=== PATIENT | male | born 1965 | race Caucasian/White ===

== ENCOUNTER 2023-08-13 14:47 | Inpatient (IN) ==
--- NOTE | 2023-08-13 14:57 | ED Triage Note ---
Date of Service August 13, 2023 History of Present Illness This patient was briefly evaluated while in triage. An abbreviated physical exam was performed. This patient is a 58-year-old Male who presents to the ED for evaluation of weakness and numbness all over the body. Symptoms have been worsening for the past few months. The patient reports a prior history of neck surgery in 2011. Physical Exam CONSTITUTIONAL: Healthy and well nourished. HEENT: No scleral icterus or conjunctival injection. NECK: Full active range of motion without discomfort. RESPIRATORY: Clear to auscultation bilaterally with no wheezing, crackles, rhonchi or stridor. CARDIOVASCULAR: Regular rate and rhythm with no murmurs, rubs or gallops. GASTROINTESTINAL: Bowel sounds present in all quadrants. MUSCULOSKELETAL: Full range of motion of all joints without discomfort. INTEGUMENTARY: No obvious skin conditions. HEMATOLOGIC: No ecchymosis or petechiae. PSYCHIATRIC: Positive affect. NEUROLOGIC: No focal neurologic deficits noted. Initial orders for labs and / or imaging were placed and patient was placed in the waiting area until a bed is available. Please see further documentation for the full ED course.
--- NOTE | 2023-08-13 15:42 | XRay Report ---
XR chest 1V portable CLINICAL HISTORY: weakness COMPARISON STUDY: Chest radiograph April 08, 2014. FINDINGS: Anterior cervical spine fusion is incidentally noted. Lung volumes are normal. Lungs are cl ear. There is no pneumothorax or pleural effusion. Cardiac size is normal. Mediastinal contours are n ormal. There is no evidence for pulmonary edema. IMPRESSION: No acute cardiopulmonary findings. ACT 112: Negative or not required by law. Electronically signed by: Khang Grimes M.D. 08/13/2023 3:40 PM
[2023-08-13 16:18] LABS: Basophils # (auto) 0.03 K/uL (0.00-0.20); Basophils % (auto) 0.5 %; Eosinophils # (auto) 0.04 K/uL (0.00-0.50); Eosinophils % (auto) 0.6 %; Hemoglobin 13.7 g/dl (14.0-18.0); Immature Granulocytes # (auto) 0.02 K/uL (0.01-0.20); Immature Granulocytes % (auto) 0.3 %; Lymphocytes # (auto) 1.05 K/uL (1.20-3.40); Lymphocytes % (auto) 16.5 %; Mean Corpuscular Hemoglobin 31.7 pg (25.0-34.0); Mean Corpuscular Hgb Conc 34.3 g/dL (32.0-36.0); Mean Corpuscular Volume 92.6 fL (80.0-100.0); Monocytes # (auto) 0.69 K/uL (0.11-0.59); Monocytes % (auto) 10.8 %; Neutrophils # (auto) 4.55 K/uL (1.40-6.50); Neutrophils % (auto) 71.3 %; Platelet Count 352 K/uL (130-400); RDW Coefficient of Variation 12.2 % (11.5-14.5); RDW Standard Deviation 41.6 fL (36.4-46.3); Red Blood Count 4.32 M/uL (4.70-6.10); White Blood Count 6.38 K/ul (4.8-10.8)
[2023-08-13 16:30] LABS: Albumin Globulin Ratio 1.6 (0.9-2); Albumin Level 4.1 gm/dl (3.4-5.0); BUN Creatinine Ratio 29.2 (10-20); Bilirubin,Total 0.5 mg/dl (0.2-1.0); Calcium 9.7 mg/dl (8.6-10.3); Est GFR (African American) 122.6 ml/min; Est GFR (Non-African American) 105.7 ml/min; Globulin 2.6 gm/dl (2.5-4.0); Magnesium 1.9 mg/dl (1.7-2.4); Potassium 4.1 mmol/L (3.5-5.1); Total Protein 6.7 gm/dl (6.0-8.3)
[2023-08-13 16:36] LABS: Troponin I High Sensitivity 5.2 pg/ml (0-20)
[2023-08-13 16:43] LABS: Prothrombin Time 10.9 Seconds (9.0-12.0)
[2023-08-13 16:45] LABS: Thyroid Stimulating Hormone 1.025 uIu/ml (0.300-4.500)
[2023-08-13 16:53] LABS: Lyme Ab IgG w/WB Rflx Negative (Negative)
[2023-08-13 16:54] LABS: Lyme Ab IgM w/WB Rflx Negative (Negative)
--- NOTE | 2023-08-13 18:09 | Emergency Department Note ---
Impression & Plan Decreased sensation, Anemia, Ambulatory dysfunction ED Provider Note NAME: MICHAELA JEFFRIES AGE: 58 SEX: M : 1965 ARRIVES VIA: Walk-In INFORMANT: Patient, ED PROVIDER(S): Jeremie Johnston MD CHIEF COMPLAINT: Gait imbalance and numbness MEDICAL DECISION MAKING: Patient presents due to concern for gait balance and associated numbness. Patient blood work was obtained. CT of the head was obtained. Patient denies any chest pain. EKG with no signs of ischemia. The patient's blood work shows a normal white count mild anemia hemoglobin of 13.7 with a normal platelet count. Kidney function is unremarkable. Prerenal azotemia noted. BSG 123. Electrolytes otherwise unremarkable negative troponin. B12 and folic acid are not abnormal. Patient's tickborne testing currently negative. I did inform the patient of the findings but given the patient's significant ambulatory dysfunction and inability work to do believe he warrants additional treatment. I did speak with the on-call hospital service Dr. Mccabe and the patient was admitted to the medicine service. Discussion w/ other healthcare providers: None Prior /Outside records reviewed: None Differential diagnosis: Infection, dehydration, metabolic abnormality, hypo/hyperglycemia, electrolyte imbalance, anemia, UTI, pneumonia, thyroid dysfunction among others were considered. Diagnostics, as interpreted by me: ECG: Normal sinus rhythm, rate of 85, normal intervals, normal axis no ST elevations or T WI. Cardiac monitoring: An order was placed for continuous cardiac monitoring. The monitor shows a rate of 85 with sinus rhythm. Patient was placed on pulse oximetry Medical decision rules: None Imaging studies: I informally interpreted the patient's CT head which does not show obvious ICH with formal report to follow. HPI: Patient presents due to concern for numbness and tingling. Patient states that this got progressively worse over the last 3 months or so for the last 2 weeks. Recommended surgery but denies any significant neck pain but does have some occasional discomfort to the neck as well as left shoulder. No chest pain or shortness of breath. Patient has any headache. Patient denies any significant alcohol use. Patient denies any falls or trauma does not take any blood in the medications.. No reported fevers or chills. No known tick bites. Patient does not take anything for symptoms does states that he feels as though he has tingling sensation associated tingling prior to the bilateral upper and lower extremities as well as the trunk. PAST MEDICAL HISTORY: Hypertension, hyperlipidemia PAST SURGICAL HISTORY: See Below SOCIAL HISTORY: Alcohol use socially. Denies drug use. Does chew tobacco HOME MEDICATIONS: See Below ALLERGIES: See Below VITALS: See Below PHYSICAL EXAMINATION: GENERAL: NAD, non-toxic. wearing glasses. EYE EXAM: Normal conjunctiva. PERRL, no anisocoria and EOM's grossly intact w/o pain. OROPHARYNX: Moist mucus membranes, grossly normal dentition. NECK: Supple, no nuchal rigidity, no adenopathy, non-tender. No signs of meningismus. FROM of the neck with good chin to chest and neck extension. No stridor. LUNGS: Clear to auscultation. Normal chest wall mechanics. HEART: NSR, no MRG. ABDOMEN: Abdomen soft, non-tender, no masses, no rebound or guarding. BACK: No CVA TTP. SKIN: No rashes and no bruising. UPPER EXTREMITIES: Upper extremities are grossly normal. LOWER EXTREMITIES: Grossly normal, no edema. NEURO EXAM: A&O x3, cranial nerves II-XII grossly intact, normal speech, moves all 4 extremities. Good patellar reflexes, tingling sensation to the arms legs and torso with normal sensation of the face Past Med/Surg History Social History Smoking Status: Never smoker Tobacco Type: Smokeless Tobacco (Dip or Chew) Second Hand Exposure: No; Do You Dip or Chew Tobacco: Yes; Tobacco Cessation Education Requested by Patient: No Hx Alcohol Use: Yes Alcohol type: beer Hx Substance Use: No Preferred Language: Guyanese Communication Ability: Effective Lead Shipper Required: No Beliefs That Will Affect Care: None Current Living Situation: Family Current Living Situation Comment: lives in house with son, patient and are currently . Other Information That Helps Us Care for You: No Feels Safe at Home: Yes Safety Concerns: Feels Safe At This Time Assistive Devices: Glasses Allergies Allergies Allergy/AdvReac Type Severity Reaction Status Date / Time No Known Allergies Allergy ` Verified 08/13/23 19:10 Home Meds Home Medications Medication Instructions Recorded Confirmed cholecalciferol (vitamin D3) 25 25 mcg PO QAM 08/13/23 08/13/23 mcg (1,000 unit) tablet (Vitamin D3) ibuprofen 200 mg tablet 400 mg PO BID PRN Pain 08/13/23 08/13/23 lisinopril 10 mg tablet 10 mg PO AMHS 08/13/23 08/13/23 omega-3 fatty acids 1,000 mg 1,000 mg PO QAM 08/13/23 08/13/23 capsule rosuvastatin 5 mg tablet 5 mg PO QAM 08/13/23 08/13/23 Results & Data (ED) Vital Signs Vital Signs - 24 hr 08/13/23 14:54 08/13/23 17:45 08/13/23 18:00 Temperature 36.8 C Temperature Source Temporal Artery Scan Pulse Rate 87 79 73 Pulse Rate from SpO2 Sensor 73 Respiratory Rate 18 14 Respiratory Effort / Characteristics Non-Labored Respiratory Depth Normal Blood Pressure 122/72 107/78 Blood Pressure Mean 88 87 Pulse Oximetry 99 98 Oxygen Delivery Method Room Air Sepsis Recent Fever Within 48 Hours No Sepsis New/Unexplained Change in Mental Status No Sepsis Action Taken by Nursing No Action Required Home Medications Current Medication List: was personally reviewed by me Laboratory Data Attestation: I reviewed the patient's lab results. 08/13/23 15:38 08/13/23 15:38 Lab Results 08/13/23 08/13/23 Range/Units 15:30 15:38 WBC 6.38 (4.8-10.8) K/ul RBC 4.32 L (4.70-6.10) M/uL Hgb 13.7 L (14.0-18.0) g/dl Hct 40.0 L (42.0-52.0) % MCV 92.6 (80.0-100.0) fL MCH 31.7 (25.0-34.0) pg MCHC 34.3 (32.0-36.0) g/dL RDW Std Deviation 41.6 (36.4-46.3) fL RDW Coeff of Prakash 12.2 (11.5-14.5) % Plt Count 352 (130-400) K/uL MPV 10.0 (9.4-12.4) fL Immature Gran % (Auto) 0.3 % Neut % (Auto) 71.3 % Lymph % (Auto) 16.5 % Edwards % (Auto) 10.8 % Eos % (Auto) 0.6 % Baso % (Auto) 0.5 % Neut # (Auto) 4.55 (1.40-6.50) K/uL Lymph # (Auto) 1.05 L (1.20-3.40) K/uL Edwards # (Auto) 0.69 H (0.11-0.59) K/uL Eos # (Auto) 0.04 (0.00-0.50) K/uL Baso # (Auto) 0.03 (0.00-0.20) K/uL Immature Gran # (Auto) 0.02 (0.01-0.20) K/uL PT 10.9 (9.0-12.0) Seconds INR 1.0 (0.9-1.1) Sodium 137 (136-145) mmol/L Potassium 4.1 (3.5-5.1) mmol/L Chloride 103 (98-107) mmol/L Carbon Dioxide 26 (21-32) mmol/L Anion Gap 8 (3-11) BUN 19 (6-23) mg/dl Creatinine 0.65 (0.6-1.4) mg/dl Est Cr Clr Drug Dosing 113.0 ml/min Est GFR ( Amer) 122.6 ml/min Est GFR (Non-Af Amer) 105.7 ml/min BUN/Creatinine Ratio 29.2 H (10-20) Glucose 123 H (70-99(Fasting)) mg/dl POC Glucose 126 H (70-99) mg/dl Calcium 9.7 (8.6-10.3) mg/dl Magnesium 1.9 (1.7-2.4) mg/dl Total Bilirubin 0.5 (0.2-1.0) mg/dl AST 17 (13-39) U/L ALT 16 (7-52) U/L Alkaline Phosphatase 59 (34-104) U/L Total Creatine Kinase 88 (30-223) U/L Troponin I High Sens 5.2 (0-20) pg/ml Total Protein 6.7 (6.0-8.3) gm/dl Albumin 4.1 (3.4-5.0) gm/dl Globulin 2.6 (2.5-4.0) gm/dl Albumin/Globulin Ratio 1.6 (0.9-2) Vitamin B12 307 (180-914) pg/ml Folate 11.52 (>5.38) ng/ml TSH 1.025 (0.300-4.500) uIu/ml Anaplasma Smear See Comment Babesia Smear See Comment Lyme Disease IgG Ab Negative (Negative) Lyme Disease IgM Ab Negative (Negative) Administered Medications Sodium Chloride (Nss) 1,000 mls @ 80 mls/hr IV .[id number] GARY Stop: 08/14/23 22:37 Last Admin: 08/13/23 21:46 Dose: 80 mls/hr Documented By: LOGAN Lisinopril (Lisinopril 10 Mg Tab) 10 mg PO AMHS GARY Stop: 09/12/23 21:37 Last Admin: 08/13/23 22:59 Dose: Not Given Documented By: LOGAN Tramadol HCl (Tramadol Hcl 50 Mg Tablet) 50 mg PO Q4H PRN PRN Reason: Pain Stop: 09/13/23 00:20 Last Admin: 08/14/23 00:29 Dose: 50 mg Documented By: LOGAN Discontinued Medications Lorazepam 0.25 mg/ Syringe 0.25 mls @ 2 mls/min IV NOW ONE Stop: 08/14/23 00:16 Last Admin: 08/14/23 00:17 Dose: 2 mls/min Documented By: LOGAN Imaging Data Radiologist's Impression: Chest X-Ray 08/13/23 14:57 XR chest 1V portable CLINICAL HISTORY: weakness COMPARISON STUDY: Chest radiograph April 08, 2014. FINDINGS: Anterior cervical spine fusion is incidentally noted. Lung volumes are normal. Lungs are clear. There is no pneumothorax or pleural effusion. Cardiac size is normal. Mediastinal contours are normal. There is no evidence for pulmonary edema. IMPRESSION: No acute cardiopulmonary findings. ACT 112: Negative or not required by law. Electronically signed by: Khang Grimes M.D. 08/13/2023 3:[address] 08/13/23 18:20 CT OF THE HEAD WITHOUT CONTRAST CLINICAL HISTORY: poor finger to nose/gait imbalance COMPARISON STUDY: No previous studies for comparison. CT DOSE: 547.75 mGy.cm TECHNIQUE: Helical axial images of the head were obtained without IV contrast. Automated exposure control was utilized for the study. A dose lowering technique was utilized adhering to the principles of ALARA. FINDINGS: No acute intracranial hemorrhage, midline shift or mass effect is present. The ventricular system is unremarkable. The basal cisterns are patent. No extra-axial collections are present. There are no findings to suggest acute dural sinus thrombosis or acute territorial infarct. No significant calvarial abnormalities are present. Visualized portions of the sinuses and mastoid air cells are clear. IMPRESSION: No acute intracranial findings. ACT 112: Negative or not required by law. Electronically signed by: Khang Grimes M.D. 08/13/2023 7:01 PM Discharge Plan Visit Data Chief Complaint: Neuro Symptoms/Deficit Stated Complaint: NUMBNESS IN HANDS/WHOLE BODY ED Provider: Jeremie Johnston Discharge Problem: Decreased sensation, Anemia, Ambulatory dysfunction Patient Disposition: Admitted As Inpatient Discharge Instructions Interventions: ED Discharge Assessment Last Done: 08/13/23 21:24 Discharge Problem: Anemia Qualifiers: Anemia type: unspecified type Qualified Code(s): D64.9 - Anemia, unspecified
--- NOTE | 2023-08-13 19:02 | CT Scan Report ---
CT OF THE HEAD WITHOUT CONTRAST CLINICAL HISTORY: poor finger to nose/gait imbalance COMPARISON STUDY: No previous studies for comparison. CT DOSE: 547.75 mGy.cm TECHNIQUE: Helical axial images of the head were obtained without IV contrast. Automated exposure con trol was utilized for the study. A dose lowering technique was utilized adhering to the principles o f ALARA. FINDINGS: No acute intracranial hemorrhage, midline shift or mass effect is present. The ventricular system is unremarkable. The basal cisterns are patent. No extra-axial collections are present. There are no findings to suggest acute dural sinus thrombosis or acute territorial infarct. No significant calvarial abnormalities are present. Visualized portions of the sinuses and mastoid air cells are elia ar. IMPRESSION: No acute intracranial findings. ACT 112: Negative or not required by law. Electronically signed by: Khang Grimes M.D. 08/13/2023 7:01 PM
--- NOTE | 2023-08-13 20:41 | History & Physical Report ---
Date of Service August 13, 2023 Assessment & Plan (1) Weakness of extremity: Plan: 58-year-old male with past medical significant for dyslipidemia, hypertension, bilateral carpal tunnel syndrome, comes with ongoing bilateral extremities weakness and numbness for several months progressively getting worse in the last 2 to 3 weeks. Bilateral extremity weakness and numbness Possible cervical radiculopathy We will get MRI cervical spine Spine surgery consult Hypertension Continue home med lisinopril We will monitor Hyperlipidemia On statin DVT prophylaxis SCDs Disposition MedSurg Full code History of Present Illness Chief Complaint: Numbness and weakness of bilateral extremities Primary Care Provider: NO PCP 58-year-old male with past medical history significant for dyslipidemia, hypertension, bilateral carpal tunnel syndrome, comes with ongoing bilateral extremities weakness and numbness for several months progressively getting worse in the last 2 to 3 weeks. He states several years ago looks like in 2006 he had cervical spine surgery. He thinks again these problems are from his neck. He has some painful neck movements. Denies any headache. No dizziness. No blurred visions. No earache or runny nose or sore throat. No cough. No difficulty swallowing. No chest pain or shortness of breath. No nausea or vomiting. No abdominal pain. Normal bowel and bladder movements. Hemodynamics are stable. Past medical history. As mentioned above Past surgical history. Left total knee arthroplasty. Bilateral carpal tunnel surgery. Colonoscopy. Cervical spine surgery. Left inguinal hernia repair. Knee surgery 1983. Social history. Quit smoking in 2000. Smoked half pack a day for 15 years. Alcohol occasional. No drug use. Family history. Father had lymphoma. Heart disorder. Hypertension. Paternal grandfather had heart attack. Sister has hypertension. Mother had stroke at age of 37 from ruptured brain aneurysm. Allergies Allergy/AdvReac Type Severity Reaction Status Date / Time No Known Allergies Allergy ` Verified 08/13/23 19:10 Home Medications Medication Instructions Recorded Confirmed Type cholecalciferol (vitamin D3) 25 25 mcg PO QAM 08/13/23 08/13/23 History mcg (1,000 unit) tablet (Vitamin D3) ibuprofen 200 mg tablet 400 mg PO BID PRN Pain 08/13/23 08/13/23 History lisinopril 10 mg tablet 10 mg PO AMHS 08/13/23 08/13/23 History omega-3 fatty acids 1,000 mg 1,000 mg PO QAM 08/13/23 08/13/23 History capsule rosuvastatin 5 mg tablet 5 mg PO QAM 08/13/23 08/13/23 History Past Med/Surg History Social History Smoking Status: Never smoker Tobacco Type: Smokeless Tobacco (Dip or Chew) Second Hand Exposure: No; Do You Dip or Chew Tobacco: Yes; Tobacco Cessation Education Requested by Patient: No Hx Alcohol Use: Yes Alcohol type: beer Hx Substance Use: No Preferred Language: Luxembourgish Communication Ability: Effective Band Booker Required: No Beliefs That Will Affect Care: None Current Living Situation: Family Current Living Situation Comment: lives in house with son, patient and are currently . Other Information That Helps Us Care for You: No Feels Safe at Home: Yes Safety Concerns: Feels Safe At This Time Assistive Devices: Glasses Review of Systems Review of Systems: All systems reviewed & are unremarkable except as noted in HPI & below Physical Exam Physical Exam: General- Not in distress Head- atraumatic Eyes- PERRL. ENT- oropharynx clear Neck- supple, no JVD. Lungs- clear to auscultation no wheezing or crackles. Heart- regular rate and rhythm; no murmur, no gallop. Abdomen- normal bowel sounds, soft, nontender, no distension. Extremities- no pretibial edema, no erythema seen. Neuro- alert, oriented x 3; PERRL,no facial palsy; no dysarthria; motor 4/5 bilaterally; decreased sensations neck down. Skin- warm & dry Results & Data Results & Data Vital Signs (Past 12 Hours) Vital Signs Temp Pulse Resp BP Pulse Ox O2 Del Method 08/13/23 18:00 73 14 107/78 98 08/13/23 17:45 79 08/13/23 14:54 36.8 C 87 18 122/72 99 Room Air Diagnostic Findings Laboratory Results WBC 6.38 K/ul (4.8-10.8) 08/13/23 15:38 RBC 4.32 M/uL (4.70-6.10) L 08/13/23 15:38 Hgb 13.7 g/dl (14.0-18.0) L 08/13/23 15:38 Hct 40.0 % (42.0-52.0) L 08/13/23 15:38 MCV 92.6 fL (80.0-100.0) 08/13/23 15:38 MCH 31.7 pg (25.0-34.0) 08/13/23 15:38 MCHC 34.3 g/dL (32.0-36.0) 08/13/23 15:38 RDW Std Deviation 41.6 fL (36.4-46.3) 08/13/23 15:38 RDW Coeff of Prakash 12.2 % (11.5-14.5) 08/13/23 15:38 Plt Count 352 K/uL (130-400) 08/13/23 15:38 MPV 10.0 fL (9.4-12.4) 08/13/23 15:38 Immature Gran % (Auto) 0.3 % 08/13/23 15:38 Neut % (Auto) 71.3 % 08/13/23 15:38 Lymph % (Auto) 16.5 % 08/13/23 15:38 Parmer % (Auto) 10.8 % 08/13/23 15:38 Eos % (Auto) 0.6 % 08/13/23 15:38 Baso % (Auto) 0.5 % 08/13/23 15:38 Neut # (Auto) 4.55 K/uL (1.40-6.50) 08/13/23 15:38 Lymph # (Auto) 1.05 K/uL (1.20-3.40) L 08/13/23 15:38 Parmer # (Auto) 0.69 K/uL (0.11-0.59) H 08/13/23 15:38 Eos # (Auto) 0.04 K/uL (0.00-0.50) 08/13/23 15:38 Baso # (Auto) 0.03 K/uL (0.00-0.20) 08/13/23 15:38 Immature Gran # (Auto) 0.02 K/uL (0.01-0.20) 08/13/23 15:38 PT 10.9 Seconds (9.0-12.0) 08/13/23 15:38 INR 1.0 (0.9-1.1) 08/13/23 15:38 Sodium 137 mmol/L (136-145) 08/13/23 15:38 Potassium 4.1 mmol/L (3.5-5.1) 08/13/23 15:38 Chloride 103 mmol/L (98-107) 08/13/23 15:38 Carbon Dioxide 26 mmol/L (21-32) 08/13/23 15:38 Anion Gap 8 (3-11) 08/13/23 15:38 BUN 19 mg/dl (6-23) 08/13/23 15:38 Creatinine 0.65 mg/dl (0.6-1.4) 08/13/23 15:38 Est Cr Clr Drug Dosing 113.0 ml/min 08/13/23 15:38 Est GFR ( Amer) 122.6 ml/min 08/13/23 15:38 Est GFR (Non-Af Amer) 105.7 ml/min 08/13/23 15:38 BUN/Creatinine Ratio 29.2 (10-20) H 08/13/23 15:38 Glucose 123 mg/dl (70-99(Fasting)) H 08/13/23 15:38 POC Glucose 126 mg/dl (70-99) H 08/13/23 15:30 Calcium 9.7 mg/dl (8.6-10.3) 08/13/23 15:38 Magnesium 1.9 mg/dl (1.7-2.4) 08/13/23 15:38 Total Bilirubin 0.5 mg/dl (0.2-1.0) 08/13/23 15:38 AST 17 U/L (13-39) 08/13/23 15:38 ALT 16 U/L (7-52) 08/13/23 15:38 Alkaline Phosphatase 59 U/L (34-104) 08/13/23 15:38 Total Creatine Kinase 88 U/L (30-223) 08/13/23 15:38 Troponin I High Sens 5.2 pg/ml (0-20) 08/13/23 15:38 Total Protein 6.7 gm/dl (6.0-8.3) 08/13/23 15:38 Albumin 4.1 gm/dl (3.4-5.0) 08/13/23 15:38 Globulin 2.6 gm/dl (2.5-4.0) 08/13/23 15:38 Albumin/Globulin Ratio 1.6 (0.9-2) 08/13/23 15:38 TSH 1.025 uIu/ml (0.300-4.500) 08/13/23 15:38 Anaplasma Smear See Comment 08/13/23 15:38 Babesia Smear See Comment 08/13/23 15:38 Lyme Disease IgG Ab Negative (Negative) 08/13/23 15:38 Lyme Disease IgM Ab Negative (Negative) 08/13/23 15:38 Impressions Chest X-Ray 08/13/23 14:57 XR chest 1V portable CLINICAL HISTORY: weakness COMPARISON STUDY: Chest radiograph April 08, 2014. FINDINGS: Anterior cervical spine fusion is incidentally noted. Lung volumes are normal. Lungs are clear. There is no pneumothorax or pleural effusion. Cardiac size is normal. Mediastinal contours are normal. There is no evidence for pulmonary edema. IMPRESSION: No acute cardiopulmonary findings. ACT 112: Negative or not required by law. Electronically signed by: Khang Grimes M.D. 08/13/2023 3:[address] 08/13/23 18:20 CT OF THE HEAD WITHOUT CONTRAST CLINICAL HISTORY: poor finger to nose/gait imbalance COMPARISON STUDY: No previous studies for comparison. CT DOSE: 547.75 mGy.cm TECHNIQUE: Helical axial images of the head were obtained without IV contrast. Automated exposure control was utilized for the study. A dose lowering technique was utilized adhering to the principles of ALARA. FINDINGS: No acute intracranial hemorrhage, midline shift or mass effect is present. The ventricular system is unremarkable. The basal cisterns are patent. No extra-axial collections are present. There are no findings to suggest acute dural sinus thrombosis or acute territorial infarct. No significant calvarial abnormalities are present. Visualized portions of the sinuses and mastoid air cells are clear. IMPRESSION: No acute intracranial findings. ACT 112: Negative or not required by law. Electronically signed by: Khang Grimes M.D. 08/13/2023 7:01 PM Code Status & VTE Plan VTE Prophylaxis Plan VTE Prophylaxis will be ordered: Yes
[2023-08-13 21:16] LABS: Folate (Folic Acid),Ser orPlas 11.52 ng/ml (>5.38)
[2023-08-13] MEDS ORDERED: ACETAMINOPHEN 325 MG TAB PO PRN (21:38)
[2023-08-13] MEDS ORDERED: POLYETHYLENE (MIRALAX) 17 GM PACK PO PRN (21:38)
[2023-08-13] MEDS: SODIUM CHLORIDE 0.9% 1,000 ML IV SCH (21:46)
[2023-08-13] MEDS: lisinopril 10 MG TAB PO SCH (22:59)
[2023-08-14] MEDS ORDERED: LORazepam 0.25 MG in SYRINGE 0.125 ML IV ONE (00:15)
[2023-08-14] MEDS: traMADol HCL 50 MG TABLET PO PRN ×2 (00:29→11:29)
[2023-08-14 00:58] LABS: Appearance Urine Clear (Clear); Bilirubin Urine Negative (Negative); Blood Urine Negative (Negative); Color Urine Yellow; Glucose Urine UA Negative (Negative); Ketones Urine Negative (Negative); Leukocyte Esterase Urine Negative (Negative); Nitrite Urine Negative (Negative); Protein Urine Negative (Negative); Specific Gravity Urine 1.014 (1.000-1.030); Urobilinogen Urine Negative (Negative)
[2023-08-14] MEDS ORDERED: GADOBUTROL 65ML VIAL IV ONE (01:16)
--- NOTE | 2023-08-14 03:17 | Magnetic Resonance Report ---
Exam(s): MRI C SPINE IV Amt: 7cc gadavist EXAM: MR Cervical Spine With Intravenous Contrast CLINICAL HISTORY: Reason for exam: b/l extremities weakness and numbness. TECHNIQUE: Magnetic resonance images of the cervical spine with intravenous contrast in multiple planes. CONTRAST: Patient received 7cc gadavist of IV contrast COMPARISON: Comparison made to prior MRI of the cervical spine from February 01, 2012.. FINDINGS: Vertebrae: There are 7 cervical type vertebral bodies with a mild generalized curve to the right and straighten the normal cervical lordosis. There is a mild grade 1 anterolisthesis of C2 on C3 measuring 2 mm. Otherwise, there is normal vertebral body height and alignment. Patient is status post corpectomy at C6 and C7 with anterior fusion of C3- C7 with expected postsurgical changes. No acute fracture. Spinal cord: There is impingement of the cord at C2-3 with increased cord signal concern for cord edema. The craniocervical junction is normal without evidence of Chiari malformation. No abnormal enhancement. Soft tissues: The cervical flow voids are intact. DISCS/SPINAL CANAL/NEURAL FORAMINA: C2-C3: Mild disc degeneration with annular disc bulge flatten the ventral cord with increased cord signal concerning for cord edema and causing a critical spinal canal stenosis with AP diameter measured 5.5 mm. Advanced facet joint arthropathy with moderate right and advanced left synovitis with bone marrow edema and inflammation of the surrounding soft tissues. C3-C4: There is fusion across the segments without evidence of residual stenosis or impingement. There is minimal to mild facet arthropathy with mild synovitis. C4-C5: There is fusion across the segments without evidence of residual stenosis or impingement. There is minimal to mild facet arthropathy with mild synovitis. C5-C6: There is fusion across the segments without evidence of residual stenosis or impingement. There is minimal to mild facet arthropathy with mild synovitis. C6-C7: There is fusion across the segments without evidence of residual stenosis or impingement. There is minimal to mild facet arthropathy with mild synovitis. C7-T1: Moderate disc degeneration with annular disc bulge asymmetric to the left flattening the ventral thecal sac with uncovertebral joint arthropathy and disc extend to the neural foramina causing moderately severe bilateral stenoses with impingement of the C8 nerve roots.. There is advanced facet arthropathy with moderate synovitis. IMPRESSION: 1. Moderate disc degeneration at C7-T1 and mild disc degeneration at C2- 3 with annular disc bulging flatten the ventral thecal sac and flattening the ventral cord at C2-3 with cord edema. Recommend neurosurgical consult for decompression. 2. There is a critical spinal canal stenosis at C2-3. 3. There is moderately severe bilateral C7-T1 neural foraminal stenosis with impingement of the bilateral C8 nerve roots. 4. There is minimal to advanced facet joint arthropathy with mild to advanced synovitis, most significant at C2-3. 5. No evidence of fracture, infection or tumor. Electronically signed by: Maria Dolores Narvaez MD 08/14/23 03:16 AM
[2023-08-14 06:40] LABS: Basophils # (auto) 0.03 K/uL (0.00-0.20); Basophils % (auto) 0.5 %; Eosinophils # (auto) 0.14 K/uL (0.00-0.50); Eosinophils % (auto) 2.3 %; Hemoglobin 13.6 g/dl (14.0-18.0); Immature Granulocytes # (auto) 0.02 K/uL (0.01-0.20); Immature Granulocytes % (auto) 0.3 %; Lymphocytes # (auto) 1.67 K/uL (1.20-3.40); Lymphocytes % (auto) 27.8 %; Mean Corpuscular Hemoglobin 31.3 pg (25.0-34.0); Mean Corpuscular Hgb Conc 34.9 g/dL (32.0-36.0); Mean Corpuscular Volume 89.7 fL (80.0-100.0); Mean Platelet Volume 9.9 fL (9.4-12.4); Monocytes # (auto) 0.73 K/uL (0.11-0.59); Monocytes % (auto) 12.2 %; Neutrophils # (auto) 3.41 K/uL (1.40-6.50); Neutrophils % (auto) 56.9 %; Platelet Count 309 K/uL (130-400); RDW Coefficient of Variation 12.1 % (11.5-14.5); RDW Standard Deviation 39.5 fL (36.4-46.3); Red Blood Count 4.35 M/uL (4.70-6.10)
[2023-08-14 06:56] LABS: BUN Creatinine Ratio 27.6 (10-20); Calcium 9.6 mg/dl (8.6-10.3); Creatinine Clr Calc Pharmacy 126.6 ml/min; Est GFR (African American) 128.4 ml/min; Est GFR (Non-African American) 110.8 ml/min; Magnesium 1.8 mg/dl (1.7-2.4)
--- NOTE | 2023-08-14 08:22 | Electrocardiogram Report ---
Test Reason : Blood Pressure : / mmHG Vent. Rate : 085 BPM Atrial Rate : 085 BPM P-R Int : 138 ms QRS Dur : 086 ms QT Int : 372 ms P-R-T Axes : 074 063 074 degrees QTc Int : 442 ms Normal sinus rhythm Normal ECG When compared with ECG of 08-APR-2014 08:58, No significant change was found Confirmed by Catrachito Wolf ([id number]) on 08/14/2023 8:22:16 AM Referred By: REFERRED SELF Confirmed By:Catrachito Wolf
[2023-08-14] MEDS: lisinopril 10 MG TAB PO SCH (08:28)
--- NOTE | 2023-08-14 08:58 | Consultation ---
Date of Consultation August 14, 2023 Assessment & Plan (1) Cervical cord myelomalacia: Michaela has C2-3 severe stenosis and myelomalacia on MRI. He also has severe neuroforaminal stenosis bilaterally at C7-T1. Case has been discussed with Dr. Kahn. Unfortunately he does not perform necessary procedure to address his cervical myelomalacia at the C2-3 level. Recommendation is transfer to a tertiary care center today so that he may undergo necessary procedure. This has been discussed with the patient. He understands. History of Present Illness Attending Physician: Mukul Brennan MD History of Present Illness This is a pleasant 58-year-old gentleman well-known to us. He had undergone a multilevel cervical fusion by Dr. Kahn in 2011. He did well postoperatively. More recently he states for the past 2 to 3 weeks he has had numbness and weakness affecting bilateral upper and lower extremities. He states he was trying to work and not leave therefore delayed any treatment. Presented to the emergency room yesterday. He has noted balance changes. No falls. Imaging independently. 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 He noticed he has been dropping several objects over the past couple weeks. He has been taking Advil for pain control at home. Denies bowel or bladder dysfunction. He notes he has numbness from the chest down. Any type of cervical movement reproduces neck pain and left shoulder pain Allergies Allergy/AdvReac Type Severity Reaction Status Date / Time No Known Allergies Allergy ` Verified 08/13/23 19:10 Home Medications Medication Instructions Recorded Confirmed Type cholecalciferol (vitamin D3) 25 25 mcg PO QAM 08/13/23 08/13/23 History mcg (1,000 unit) tablet (Vitamin D3) ibuprofen 200 mg tablet 400 mg PO BID PRN Pain 08/13/23 08/13/23 History lisinopril 10 mg tablet 10 mg PO AMHS 08/13/23 08/13/23 History omega-3 fatty acids 1,000 mg 1,000 mg PO QAM 08/13/23 08/13/23 History capsule rosuvastatin 5 mg tablet 5 mg PO QAM 08/13/23 08/13/23 History Patient History Social History Smoking Status: Never smoker Tobacco Type: Smokeless Tobacco (Dip or Chew) Second Hand Exposure: No; Do You Dip or Chew Tobacco: Yes; Tobacco Cessation Education Requested by Patient: No Hx Alcohol Use: Yes Alcohol type: beer Hx Substance Use: No Preferred Language: Algerian Communication Ability: Effective Contract Administration Coordinator Required: No Beliefs That Will Affect Care: None Current Living Situation: Family Current Living Situation Comment: lives in house with son, patient and are currently . Other Information That Helps Us Care for You: No Feels Safe at Home: Yes Safety Concerns: Feels Safe At This Time Assistive Devices: None Review of Systems Review of Systems: All systems reviewed & are unremarkable except as noted in HPI & below Physical Exam Physical Exam: He is laying in bed in no acute distress Anterior cervical incision is well-healed I am unable to elicit any upper motor neuron signs but he is quite tense during our exam No evidence of an clonus again very tense and difficult to assess though 5/5 finger intrinsics, wrist flexors, wr ist extensors, biceps, triceps, deltoid Positive for meets with cervical extension Results & Data Vital Signs (Past 12 Hours) Vital Signs Temp Pulse Resp BP Pulse Ox O2 Del Method 08/14/23 07:21 36.5 C 75 16 143/88 H 97 Room Air 08/13/23 21:30 36.6 C 74 16 133/83 98 Room Air Diagnostic Findings [place], [place] [phone] Magnetic Resonance Report Patient: MICHAELA JEFFRIES Admit Date: 08/13/23 MR#: [id number] Address1: [address] [place] [address] Acct ID:[id number] Address2: [place] [address] Date: 1965 [facility] Zip: [place] [address] Age: 58 Location: 3W Sex: M Room/Bed: [facility] Att Phy: Robbin Bates MD Diagnosis: NUMBNESS AND WEAKNESS IN EXTREMITIES Leela Phy: PCP,NO Service Date: 08/14/23 Fam Phy: Interpreting Phy: Maria Dolores Narvaez MDAdmit Phy: Pavel Mccabe MD Ordering Phy: Pavel Mccabe MD cc: ~ Exam(s): MRI C SPINE IV Amt: 7cc gadavist EXAM: MR Cervical Spine With Intravenous Contrast CLINICAL HISTORY: Reason for exam: b/l extremities weakness and numbness. TECHNIQUE: Magnetic resonance images of the cervical spine with intravenous contrast in multiple planes. CONTRAST: Patient received 7cc gadavist of IV contrast COMPARISON: Comparison made to prior MRI of the cervical spine from February 01, 2012.. FINDINGS: Vertebrae: There are 7 cervical type vertebral bodies with a mild generalized curve to the right and straighten the normal cervical lordosis. There is a mild grade 1 anterolisthesis of C2 on C3 measuring 2 mm. Otherwise, there is normal vertebral body height and alignment. Patient is status post corpectomy at C6 and C7 with anterior fusion of C3- C7 with expected postsurgical changes. No acute fracture. Spinal cord: There is impingement of the cord at C2-3 with increased cord signal concern for cord edema. The craniocervical junction is normal without evidence of Chiari malformation. No abnormal enhancement. Soft tissues: The cervical flow voids are intact. DISCS/SPINAL CANAL/NEURAL FORAMINA: C2-C3: Mild disc degeneration with annular disc bulge flatten the ventral cord with increased cord signal concerning for cord edema and causing a critical spinal canal stenosis with AP diameter measured 5.5 mm. Advanced facet joint arthropathy with moderate right and advanced left synovitis with bone marrow edema and inflammation of the surrounding soft tissues. C3-C4: There is fusion across the segments without evidence of residual stenosis or impingement. There is minimal to mild facet arthropathy with mild synovitis. C4-C5: There is fusion across the segments without evidence of residual stenosis or impingement. There is minimal to mild facet arthropathy with mild synovitis. C5-C6: There is fusion across the segments without evidence of residual stenosis or impingement. There is minimal to mild facet arthropathy with mild synovitis. C6-C7: There is fusion across the segments without evidence of residual stenosis or impingement. There is minimal to mild facet arthropathy with mild synovitis. C7-T1: Moderate disc degeneration with annular disc bulge asymmetric to the left flattening the ventral thecal sac with uncovertebral joint arthropathy and disc extend to the neural foramina causing moderately severe bilateral stenoses with impingement of the C8 nerve roots.. There is advanced facet arthropathy with moderate synovitis. IMPRESSION: 1. Moderate disc degeneration at C7-T1 and mild disc degeneration at C2- 3 with annular disc bulging flatten the ventral thecal sac and flattening the ventral cord at C2-3 with cord edema. Recommend neurosurgical consult for decompression. 2. There is a critical spinal canal stenosis at C2-3. 3. There is moderately severe bilateral C7-T1 neural foraminal stenosis with impingement of the bilateral C8 nerve roots. 4. There is minimal to advanced facet joint arthropathy with mild to advanced synovitis, most significant at C2-3. 5. No evidence of fracture, infection or tumor. Electronically signed by: Maria Dolores Narvaez MD 08/14/23 03:16 AM Dictated: 08/14/236 Transcribed: 08/14/236
[2023-08-14] MEDS ORDERED: INFLUENZA VIRUS QUADRIVALENT VACCINE (IIV4) 0.5 ML SYR IM ONE (09:00)
[2023-08-14] MEDS ORDERED: CHOLECALCIFEROL 1,000 UNITS 25 MCG TAB PO SCH (09:00)
[2023-08-14] MEDS ORDERED: ROSUVASTATIN CALCIUM 5 MG TAB PO SCH (09:00)
[2023-08-14] MEDS: SODIUM CHLORIDE 0.9% 1,000 ML IV SCH (10:51)
[2023-08-14] MEDS ORDERED: DEXAMETHASONE SOD INJ 4 MG/ML VIAL IV SCH (11:00)
[2023-08-14] MEDS ORDERED: dexAMETHasone 20 MG in DEXTROSE 5% 25 ML IV SCH (11:15)
--- NOTE | 2023-08-14 12:28 | Hospitalist Progress Note ---
Date of Service August 14, 2023 Assessment & Plan (1) Weakness of extremity: Plan: 58-year-old male with past medical significant for dyslipidemia, hypertension, bilateral carpal tunnel syndrome, comes with ongoing bilateral extremities weakness and numbness for several months progressively getting worse in the last 2 to 3 weeks. Cervical cord myelomalacia--POA Presented with Bilateral extremity weakness and numbness --Cervical MRI:Moderate disc degeneration at C7-T1 and mild disc degeneration at C2-3 with annular disc bulging flatten the ventral thecal sac and flattening the ventral cord at C2-3 with cord edema. Recommend neurosurgical consult for decompression. There is a critical spinal canal stenosis at C2-3. There is moderately severe bilateral C7-T1 neural foraminal stenosis with impingement of the bilateral C8 nerve roots. There is minimal to advanced facet joint arthropathy with mild to advanced synovitis, most significant at C2-3. No evidence of fracture, infection or tumor. --Head CT:No acute intracranial findings. -- Appreciate orthopedics input Given need for neurosurgery/possible need for extensive spine surgery orthopedics recommended transfer to tertiary care facility Patient/family understands and agrees with transfer Patient was accepted at [facility] for further evaluation Hypertension Continue lisinopril monitor Hyperlipidemia On statin DVT prophylaxis SCDs CODE STATUS Full Code Disposition [facility] Admission and Anticipated Discharge Date Admission Date: August 13, 2023 Subjective Patient is seen and examined at bedside States having neck pain associated with upper extremity weakness Denies any chest pain, dyspnea, dizziness Plan to be transferred to [facility] as recommended by orthopedics Review of Systems Review of Systems: All systems reviewed & are unremarkable except as noted in Subjective Physical Exam Physical Exam: Physical Exam: Vitals signs as noted above General Appearance:Moderately built and nourished, no apparent distress Head: normocephalic, Atraumatic Eyes: normal inspection, EOMI Neck: supple, Trachea midline Respiratory/Chest: Normal breath sounds, CTA, No accessory muscle use Cardiovascular: S1, S2, No murmur Abdomen/GI:Soft, Non tender, Bowel sounds present Extremities/Musculoskeletal:normal inspection, no edema Neurologic/Psych:AAOX3, B/L UE 4/5 Skin: normal color, warm Results & Data Results & Data Vital Signs (Past 12 Hours) Vital Signs Temp Pulse Resp BP Pulse Ox O2 Del Method 08/14/23 07:21 36.5 C 75 16 143/88 H 97 Room Air Laboratory Results Short CBC 08/14/23 Range/Units 05:54 WBC 6.00 (4.8-10.8) K/ul Hgb 13.6 L (14.0-18.0) g/dl Hct 39.0 L (42.0-52.0) % Plt Count 309 (130-400) K/uL BMP 08/14/23 05:54 Sodium 138 Potassium 4.0 Chloride 105 Carbon Dioxide 28 BUN 16 Creatinine 0.58 L Glucose 111 H Calcium 9.6 Urine 08/14/23 Range/Units 00:40 Urine Color Yellow Urine Appearance Clear (Clear) Urine pH 6.0 (4.5-7.5) Ur Specific [place] 1.014 (1.000-1.030) Urine Protein Negative (Negative) Urine Glucose (UA) Negative (Negative)
--- NOTE | 2023-08-14 19:42 | Discharge Summary ---
Date of Service August 14, 2023 Admission HPI Per Admitting Provider 58-year-old male with past medical history significant for dyslipidemia, hypertension, bilateral carpal tunnel syndrome, comes with ongoing bilateral extremities weakness and numbness for several months progressively getting worse in the last 2 to 3 weeks. He states several years ago looks like in 2006 he had cervical spine surgery. He thinks again these problems are from his neck. He has some painful neck movements. Denies any headache. No dizziness. No blurred visions. No earache or runny nose or sore throat. No cough. No difficulty swallowing. No chest pain or shortness of breath. No nausea or vomiting. No abdominal pain. Normal bowel and bladder movements. Hemodynamics are stable. Past medical history. As mentioned above Past surgical history. Left total knee arthroplasty. Bilateral carpal tunnel surgery. Colonoscopy. Cervical spine surgery. Left inguinal hernia repair. Knee surgery 1983. Social history. Quit smoking in 2000. Smoked half pack a day for 15 years. Alcohol occasional. No drug use. Family history. Father had lymphoma. Heart disorder. Hypertension. Paternal grandfather had heart attack. Sister has hypertension. Mother had stroke at age of 37 from ruptured brain aneurysm. Admission Exam Per Admitting Provider General- Not in distress Head- atraumatic Eyes- PERRL. ENT- oropharynx clear Neck- supple, no JVD. Lungs- clear to auscultation no wheezing or crackles. Heart- regular rate and rhythm; no murmur, no gallop. Abdomen- normal bowel sounds, soft, nontender, no distension. Extremities- no pretibial edema, no erythema seen. Neuro- alert, oriented x 3; PERRL,no facial palsy; no dysarthria; motor 4/5 bilaterally; decreased sensations neck down. Skin- warm & dry Principal Diagnosis Cervical cord myelomalacia Discharge Data Allergies Allergy/AdvReac Type Severity Reaction Status Date / Time No Known Allergies Allergy ` Verified 08/13/23 19:10 Consultations 08/13/23 19:37 ED Decision to Admit Stat 08/14/23 08:00 Consult Orthopedic Spine Surgery Routine 08/14/23 13:26 Burn CD for patient Stat Procedures Performed Laboratory Results WBC 6.00 K/ul (4.8-10.8) 08/14/23 05:54 RBC 4.35 M/uL (4.70-6.10) L 08/14/23 05:54 Hgb 13.6 g/dl (14.0-18.0) L 08/14/23 05:54 Hct 39.0 % (42.0-52.0) L 08/14/23 05:54 MCV 89.7 fL (80.0-100.0) 08/14/23 05:54 MCH 31.3 pg (25.0-34.0) 08/14/23 05:54 MCHC 34.9 g/dL (32.0-36.0) 08/14/23 05:54 RDW Std Deviation 39.5 fL (36.4-46.3) 08/14/23 05:54 RDW Coeff of Prakash 12.1 % (11.5-14.5) 08/14/23 05:54 Plt Count 309 K/uL (130-400) 08/14/23 05:54 MPV 9.9 fL (9.4-12.4) 08/14/23 05:54 Immature Gran % (Auto) 0.3 % 08/14/23 05:54 Neut % (Auto) 56.9 % 08/14/23 05:54 Lymph % (Auto) 27.8 % 08/14/23 05:54 Bell % (Auto) 12.2 % 08/14/23 05:54 Eos % (Auto) 2.3 % 08/14/23 05:54 Baso % (Auto) 0.5 % 08/14/23 05:54 Neut # (Auto) 3.41 K/uL (1.40-6.50) 08/14/23 05:54 Lymph # (Auto) 1.67 K/uL (1.20-3.40) 08/14/23 05:54 Bell # (Auto) 0.73 K/uL (0.11-0.59) H 08/14/23 05:54 Eos # (Auto) 0.14 K/uL (0.00-0.50) 08/14/23 05:54 Baso # (Auto) 0.03 K/uL (0.00-0.20) 08/14/23 05:54 Immature Gran # (Auto) 0.02 K/uL (0.01-0.20) 08/14/23 05:54 PT 10.9 Seconds (9.0-12.0) 08/13/23 15:38 INR 1.0 (0.9-1.1) 08/13/23 15:38 Sodium 138 mmol/L (136-145) 08/14/23 05:54 Potassium 4.0 mmol/L (3.5-5.1) 08/14/23 05:54 Chloride 105 mmol/L (98-107) 08/14/23 05:54 Carbon Dioxide 28 mmol/L (21-32) 08/14/23 05:54 Anion Gap 5 (3-11) 08/14/23 05:54 BUN 16 mg/dl (6-23) 08/14/23 05:54 Creatinine 0.58 mg/dl (0.6-1.4) L 08/14/23 05:54 Est Cr Clr Drug Dosing 126.6 ml/min 08/14/23 05:54 Est GFR ( Amer) 128.4 ml/min 08/14/23 05:54 Est GFR (Non-Af Amer) 110.8 ml/min 08/14/23 05:54 BUN/Creatinine Ratio 27.6 (10-20) H 08/14/23 05:54 Glucose 111 mg/dl (70-99(Fasting)) H 08/14/23 05:54 POC Glucose 126 mg/dl (70-99) H 08/13/23 15:30 Calcium 9.6 mg/dl (8.6-10.3) 08/14/23 05:54 Magnesium 1.8 mg/dl (1.7-2.4) 08/14/23 05:54 Total Bilirubin 0.5 mg/dl (0.2-1.0) 08/13/23 15:38 AST 17 U/L (13-39) 08/13/23 15:38 ALT 16 U/L (7-52) 08/13/23 15:38 Alkaline Phosphatase 59 U/L (34-104) 08/13/23 15:38 Total Creatine Kinase 88 U/L (30-223) 08/13/23 15:38 Troponin I High Sens 5.2 pg/ml (0-20) 08/13/23 15:38 Total Protein 6.7 gm/dl (6.0-8.3) 08/13/23 15:38 Albumin 4.1 gm/dl (3.4-5.0) 08/13/23 15:38 Globulin 2.6 gm/dl (2.5-4.0) 08/13/23 15:38 Albumin/Globulin Ratio 1.6 (0.9-2) 08/13/23 15:38 Vitamin B12 307 pg/ml (180-914) 08/13/23 15:38 Folate 11.52 ng/ml (>5.38) 08/13/23 15:38 TSH 1.025 uIu/ml (0.300-4.500) 08/13/23 15:38 Urine Color Yellow 08/14/23 00:40 Urine Appearance Clear (Clear) 08/14/23 00:40 Urine pH 6.0 (4.5-7.5) 08/14/23 00:40 Ur Specific [place] 1.014 (1.000-1.030) 08/14/23 00:40 Urine Protein Negative (Negative) 08/14/23 00:40 Urine Glucose (UA) Negative (Negative) 08/14/23 00:40 Urine Ketones Negative (Negative) 08/14/23 00:40 Urine Blood Negative (Negative) 08/14/23 00:40 Urine Nitrite Negative (Negative) 08/14/23 00:40 Urine Bilirubin Negative (Negative) 08/14/23 00:40 Urine Urobilinogen Negative (Negative) 08/14/23 00:40 Ur Leukocyte Esterase Negative (Negative) 08/14/23 00:40 Anaplasma Smear See Comment 08/13/23 15:38 Babesia Smear See Comment 08/13/23 15:38 Lyme Disease IgG Ab Negative (Negative) 08/13/23 15:38 Lyme Disease IgM Ab Negative (Negative) 08/13/23 15:38 Impressions Chest X-Ray 08/13/23 14:57 XR chest 1V portable CLINICAL HISTORY: weakness COMPARISON STUDY: Chest radiograph April 08, 2014. FINDINGS: Anterior cervical spine fusion is incidentally noted. Lung volumes are normal. Lungs are clear. There is no pneumothorax or pleural effusion. Cardiac size is normal. Mediastinal contours are normal. There is no evidence for pulmonary edema. IMPRESSION: No acute cardiopulmonary findings. ACT 112: Negative or not required by law. Electronically signed by: Khang Grimes M.D. 08/13/2023 3:[address] 08/13/23 18:20 CT OF THE HEAD WITHOUT CONTRAST CLINICAL HISTORY: poor finger to nose/gait imbalance COMPARISON STUDY: No previous studies for comparison. CT DOSE: 547.75 mGy.cm TECHNIQUE: Helical axial images of the head were obtained without IV contrast. Automated exposure control was utilized for the study. A dose lowering technique was utilized adhering to the principles of ALARA. FINDINGS: No acute intracranial hemorrhage, midline shift or mass effect is present. The ventricular system is unremarkable. The basal cisterns are patent. No extra-axial collections are present. There are no findings to suggest acute dural sinus thrombosis or acute territorial infarct. No significant calvarial abnormalities are present. Visualized portions of the sinuses and mastoid air cells are clear. IMPRESSION: No acute intracranial findings. ACT 112: Negative or not required by law. Electronically signed by: Khang Grimes M.D. 08/13/2023 7:01 PM Cervical Spine MRI 08/14/23 00:37 Exam(s): MRI C SPINE IV Amt: 7cc gadavist EXAM: MR Cervical Spine With Intravenous Contrast CLINICAL HISTORY: Reason for exam: b/l extremities weakness and numbness. TECHNIQUE: Magnetic resonance images of the cervical spine with intravenous contrast in multiple planes. CONTRAST: Patient received 7cc gadavist of IV contrast COMPARISON: Comparison made to prior MRI of the cervical spine from February 01, 2012.. FINDINGS: Vertebrae: There are 7 cervical type vertebral bodies with a mild generalized curve to the right and straighten the normal cervical lordosis. There is a mild grade 1 anterolisthesis of C2 on C3 measuring 2 mm. Otherwise, there is normal vertebral body height and alignment. Patient is status post corpectomy at C6 and C7 with anterior fusion of C3- C7 with expected postsurgical changes. No acute fracture. Spinal cord: There is impingement of the cord at C2-3 with increased cord signal concern for cord edema. The craniocervical junction is normal without evidence of Chiari malformation. No abnormal enhancement. Soft tissues: The cervical flow voids are intact. DISCS/SPINAL CANAL/NEURAL FORAMINA: C2-C3: Mild disc degeneration with annular disc bulge flatten the ventral cord with increased cord signal concerning for cord edema and causing a critical spinal canal stenosis with AP diameter measured 5.5 mm. Advanced facet joint arthropathy with moderate right and advanced left synovitis with bone marrow edema and inflammation of the surrounding soft tissues. C3-C4: There is fusion across the segments without evidence of residual stenosis or impingement. There is minimal to mild facet arthropathy with mild synovitis. C4-C5: There is fusion across the segments without evidence of residual stenosis or impingement. There is minimal to mild facet arthropathy with mild synovitis. C5-C6: There is fusion across the segments without evidence of residual stenosis or impingement. There is minimal to mild facet arthropathy with mild synovitis. C6-C7: There is fusion across the segments without evidence of residual stenosis or impingement. There is minimal to mild facet arthropathy with mild synovitis. C7-T1: Moderate disc degeneration with annular disc bulge asymmetric to the left flattening the ventral thecal sac with uncovertebral joint arthropathy and disc extend to the neural foramina causing moderately severe bilateral stenoses with impingement of the C8 nerve roots.. There is advanced facet arthropathy with moderate synovitis. IMPRESSION: 1. Moderate disc degeneration at C7-T1 and mild disc degeneration at C2- 3 with annular disc bulging flatten the ventral thecal sac and flattening the ventral cord at C2-3 with cord edema. Recommend neurosurgical consult for decompression. 2. There is a critical spinal canal stenosis at C2-3. 3. There is moderately severe bilateral C7-T1 neural foraminal stenosis with impingement of the bilateral C8 nerve roots. 4. There is minimal to advanced facet joint arthropathy with mild to advanced synovitis, most significant at C2-3. 5. No evidence of fracture, infection or tumor. Electronically signed by: Maria Dolores Narvaez MD 08/14/23 03:16 AM Ordered Studies 08/13/23 18:20 CT head/brain wo con Stat 08/14/23 00:37 MR cervical spine wo/w con Urgent Hospital Course (1) Weakness of extremity: 58-year-old male with past medical significant for dyslipidemia, hypertension, bilateral carpal tunnel syndrome, comes with ongoing bilateral extremities weakness and numbness for several months progressively getting worse in the last 2 to 3 weeks. Cervical cord myelomalacia--POA Presented with Bilateral extremity weakness and numbness --Cervical MRI:Moderate disc degeneration at C7-T1 and mild disc degeneration at C2-3 with annular disc bulging flatten the ventral thecal sac and flattening the ventral cord at C2-3 with cord edema. Recommend neurosurgical consult for decompression. There is a critical spinal canal stenosis at C2-3. There is moderately severe bilateral C7-T1 neural foraminal stenosis with impingement of the bilateral C8 nerve roots. There is minimal to advanced facet joint arthropathy with mild to advanced synovitis, most significant at C2-3. No evidence of fracture, infection or tumor. --Head CT:No acute intracranial findings. -- Appreciate orthopedics input Given need for neurosurgery/possible need for extensive spine surgery ortho pedics recommended transfer to tertiary care facility Patient/family understands and agrees with transfer Patient was accepted at [facility] for further evaluation Hypertension Continue lisinopril monitor Hyperlipidemia On statin DVT prophylaxis SCDs CODE STATUS Full Code Disposition [facility] Total Time Total Time Spent Total Time Spent (In Minutes): 55 minutes Discharge Plan Discharge Items Patient Disposition: Transfer Acute Care Hospital Reason For Visit: NUMBNESS AND WEAKNESS IN EXTREMITIES Discharge Diagnosis: Cervical cord myelomalacia Activity: Per Instructions section Exercise/Sports: Wait until after follow-up appointment Non-emergency contact: Primary Care Provider Call non-emergency contact if: you have any medication questions, your symptoms worsen, your pain is concerning for you and you have a fever Follow-up/Referrals: PCP,NO [Primary Care Provider] - Diet: Heart Healthy Sherif Attending Provider Instructions: Follow up with your Physicians at [facility] Dr.Deepak Acosta and Dr. Mohsen Young for further evaluation and management Seek immediate medical attention if your symptoms reoccur or worsen Please take all medications as instructed on discharge list below. Please call if you have any questions or problems. You can reach a [facility] hospitalist on duty at [facility] 24 hours a day by calling [phone] Beckie Aviation Safety Technician Provider Instructions: Current Inpatient Medications Acetaminophen (Acetaminophen 325 Mg Tab) 650 mg PO Q4H PRN PRN Reason: pain/fever Stop: 09/12/23 21:37 Sodium Chloride (Nss) 1,000 mls @ 80 mls/hr IV .[id number] GARY Stop: 08/14/23 22:37 Last Admin: 08/14/23 10:51 Dose: 80 mls/hr Dexamethasone 10 mg/ Syringe 2.5 mls @ 1 mls/min IV Q8H GARY Stop: 08/16/23 03:16 Dexamethasone 20 mg/ Dextrose 30 mls @ 50 mls/hr IV Q8H GARY Stop: 08/15/23 03:16 Last Admin: 08/14/23 12:04 Dose: 50 mls/hr Lisinopril (Lisinopril 10 Mg Tab) 10 mg PO AMHS GARY Stop: 09/12/23 21:37 Last Admin: 08/14/23 08:28 Dose: 10 mg Polyethylene Glycol (Polyethylene (Miralax) 17 Gm Pack) 17 gm PO DAILY PRN PRN Reason: Constipation Stop: 09/12/23 21:37 Rosuvastatin Calcium (Rosuvastatin Calcium 5 Mg Tab) 5 mg PO QAM GARY Stop: 09/13/23 08:59 Last Admin: 08/14/23 08:28 Dose: 5 mg Tramadol HCl (Tramadol Hcl 50 Mg Tablet) 50 mg PO Q4H PRN PRN Reason: Pain Stop: 09/13/23 00:20 Last Admin: 08/14/23 11:29 Dose: 50 mg Vitamin D (Cholecalciferol 1,000 Units 25 Mcg Tab) 1,000 units PO QAM [facility] Stop: 09/13/23 08:59 Last Admin: 08/14/23 08:28 Dose: 1,000 units Pending Studies at Discharge: No Stand-Alone Forms: [facility] Skilled Items Patient informed of condition?: Yes DNR: No Discharge Level of Care: Other Communicable Disease: No Discharge Prognosis: Stable Lines: Peripheral IV Urinary Catheter: No Medications and DC Order Prescriptions: Continued lisinopril 10 mg tablet 10 mg PO AMHS rosuvastatin 5 mg tablet 5 mg PO QAM omega-3 fatty acids 1,000 mg Capsule 1,000 mg PO QAM ibuprofen 200 mg Tablet 400 mg PO BID PRN (Reason: Pain) cholecalciferol (vitamin D3) [Vitamin D3] 25 mcg (1,000 unit) Tablet 25 mcg PO QAM Discharge Orders: Discharge Order (Routine); Ordered 08/14/23 Ordered By: Mukul Taylor/Other Patient Handouts: Anatomy of a Normal Spine Admission Data Admit Date/Time: 08/13/23 20:03 Attending Provider: Mukul Brennan Admit Provider: Pavel Mccabe Primary Care Provider: PCP,NO Other Providers: Pavel Mccabe; Criss,Cheng M Other Interventions: Discharge Summary Assessment (RN) Last Done: 08/14/23 13:43
[2023-08-15] MEDS ORDERED: DEXAMETHASONE SOD INJ 4 MG/ML VIAL IV SCH (11:00)
[2023-08-15] MEDS ORDERED: dexAMETHasone 10 MG in SYRINGE 0 ML IV SCH (11:15)
--- OUTSIDE RECORDS SUMMARY | 2023-08-15 21:10 | External Medical Summary | Summary of Care ---
Author Name Unknown Organization [facility] Address [address] [place] [address] Phone [phone] Care Team Providers Care Industrial Refrigeration Mechanic Name Role Phone Unavailable Primary Care Provider Unavailabl e Reason for Visit * Reason Onset Date Comments Appointment 04/09/2023 Encounter Details Date Type Department Care Team Description 04/09/2023 Telephone Orthopaedics [facility] [address] [place] [address] Services, Scheduling [address] [place] [address] Appointment Allergies Active Allergy Reactions Severity Noted Date Comments Thiopental Sodium Seizure High 02/18/2001 documented as of this encounter (statuses as of 04/09/2023) Medications Medication Sig Dispensed Refills Start Date End Date Status Vitamin D, Cholecalciferol, 1000 units TABS Take 1 Tablet by mouth in the morning. 0 Active Ibuprofen 200 MG Oral Capsule 4 Capsules 2 times a day as needed for Pain. 0 Active omega-3 1000 MG CAPS Take 1 Capsule by mouth in the morning. 0 Active Lisinopril 10 MG Oral Tablet (Prinivil) Take 1 Tablet by mouth in the morning and 1 Tablet before bedtime. 180 Tablet 3 11/02/2022 Active Rosuvastatin Calcium 5 MG Oral Tablet (Crestor) Take 1 Tablet by mouth in the morning. 90 Tablet 3 11/02/2022 Active Acetaminophen-Codein e 300-30 MG Oral Tablet Take 1 Tablet by mouth every 4 hours as needed for Pain, Moderate. May take 2 tablets for severe pain. Maximum daily dose is 10 tablets. 10 Tablet 1 02/20/2023 Active documented as of this encounter (statuses as of 04/09/2023) Active Problems Problem Noted Date Spontaneous rupture of flexor tendon of right hand 12/31/2022 Bilateral carpal tunnel syndrome 022 HTN, goal below 130/80 Dyslipidemia documented as of this encounter (statuses as of 04/09/2023) Resolved Problems Problem Noted Date Resolved Date History of 2019 novel coronavirus disease (COVID -19) 05/13/2021 10/16/2021 Prediabetes 02/18/2018 10/16/2021 Overview: Per Prediabetes protocol #1 Snoring 09/07/2015 10/16/2021 Screening for prostate cancer 07/09/2014 Prostate cancer screening in formation given during patient encounter 10/16/2012 09/07/2015 Screening for colon cancer 10/16/201209/07 General medical exam 10/16/2012 10/16/2021 Pain, joint, knee, right 10/04/2011 015 Pain, joint, foot, right 10/04/2011 015 Headache 10/17/2010 10/16/2012 Overview: ICD-10 update of inactive term Herpetic gingivostomatitis 08/15/201007/09 Lyme disease 06/15/2010 09/07/2015 Herpetic gingivostomatitis 06/14/201010/16 Other, multiple, and unspeci fied sites, insect bite, nonvenomous, without mention of infection(919.4) 06/14/201010/16 Hallux valgus 01/31/2010 10/16/2012 Overview: right foot Dyslipidemia, goal LDL below 130 11/10/2009 09/07/2015 History of tobacco use 11/10/2009 4 Vitamin D deficiency 11/10/2009 07/09/2014 Overview: Vitamin D 18.5 Vitamin D deficiency 11/10/2009 10/16/2021 Overview: Vitamin D 18.5 Dyslipidemia, goal to be determined 09/13/2009 11/10/2009 Overview: Per Lipid Taxonomy. OSTEOARTHROS NOS-L-LEG 07/16/2005 3 Mixed dyslipidemia 01/19/2003 09/13/2009 Overview: Per Lipid Taxonomy. Peptic ulcer 10/16/2012 Degeneration of cervical intervertebral disc 10/16/2012 HTN, goal below 140/90 2 Overview: Per HTN Protocol #27. Peptic ulcer 10/16/2012 documented as of this encounter (statuses as of 04/09/2023) Immunizations Name Administration Dates Next Due Seasonal Influenza, Quadriva lent, No Preserve, 6 Mons & Above, IM 11/02/2022,11/01/2021,08/14/2020,2018 Seasonal Influenza, Quadriva lent, No Preserve, IM 09/07/2015 Seasonal Influenza, Split, I IV3, With Preserve, Inj 10/16/2012,07/31/2011 TD - Tetanus/Diptheria (ADULT) 09/30/2000 TDAP (age 10 and older)(Boostrix) 10/16/2012 Zoster Vaccine Recombinant (Shingrix) 12/11/2019 ,10/09/2019 documented as of this encounter Social History Tobacco Use Types Packs/Day Years Used Date Smoking Tobacco: Former Cigarettes 0.5 15 Smokeless Tobacco: Former Snuff Quit: 12/29/2000 Comments:quit the snuff Alcohol Use Standard Drinks/Week Comments Yes 0 (1 standard drink = 0.6 oz pur e alcohol) occ Sex Assigned at Date Recorded Male 03/06/2023 9:59 AM E DT Job Start Date Occupation Industry Not on file Not on file Not on file documented as of this encounter Miscellaneous Notes * Telephone Encounter - TOMASA Stanford - 04/09/2023 10:59 AM EDT Pt picked up paperwork at 10:59 a.m. * Telephone Encounter - Paty Christensen - 04/09/2023 10:32 AM EDT Spoke with Fermin, information printed and at front attendant in ortho. 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 * Telephone Encounter - TOMASA Yuan - 04/09/2023 9:17 AM EDT Patient called requesting information for his Workmans Comp Insurance regarding his Flexor Tendon procedure by Dr Sellers. He needs information of the date of the procedure and the return to work for his workman's Comp. He can pick the information up at the office if he needs to. Please call patient at [phone] documented in this encounter Plan of Treatment Scheduled Procedures Name Priority Associated Diagnoses Date/Ti me COLONOSCOPY FLEXIBLE PROXIMAL DIAGNOSTIC Recall History of colon polyps Health Maintenance Due Date Last Done Comments Hepatitis B (1 of 3 - 3-dose series) 1965 COVID-19 Vaccine (#1) 1965 Albumin/Creatinine Ratio 09/08/2018 09/08/2015, 06/30 Depression Screening, Annual for Pts 12 and Over 10/09/2020 10/09/2019 DTaP,Tdap,and Td Vaccines (2 - Td or Tdap) 10/16/2022 10/16/2012, 09/30/2000 Influenza Vaccine (FLU shot) (#1) 2023 11/02/2022, 11/01/2021, 08/14/2020, Additional history exists GFR 11/02/2023 11/02/2022, 02/0 10/2021, 10/14/2020, Additional history exists COLONOSCOPY-EVERY 5 YRS AGES 18-100 10/23/2024 10/23/2019, 10/23/2019, 04/28/2013, Additional history exists Diabetes Screening 11/02/2025 11/02/2022, 0 11/01/2021, 10/14/2020, Additional history exists Lipid Panel 11/02/2027 11/02/2022, 02/0 10/2021, 05/29/2021, Additional history exists Zoster Vaccines Completed 12/11/2019, 10/09/2019 GARDASIL-HPV IMMUNIZATION SERIES Aged Out No longer eligible based on patient's age to complete this topic MENINGOCOCCAL (MENACTRA/MENVEO) Aged Out No longer eligible based on patient's age to complete this topic Pneumococcal Vaccine: Pediatrics (0 to 5 Years) and At-Risk Patients (6 to 64 Years) Aged Out No longer eligible based on patient's age to complete this topic documented as of this encounter Medical Devices Not on filedocumented as of this encounter
--- OUTSIDE RECORDS SUMMARY | 2023-08-15 21:10 | External Medical Summary | Summary of Care ---
Author Name Unknown Organization [facility] Address [address] [place] [address] Phone [phone] Care Team Providers Care Vineyardist Name Role Phone Unavailable Primary Care Provider Unavailabl e Reason for Visit * Reason Onset Date Comments Appointment 04/09/2023 Encounter Details Date Type Department Care Team Description 04/09/2023 Telephone Orthopaedics [facility] [address] [place] [address] Services, Scheduling [address] [place] [address] Appointment Allergies Active Allergy Reactions Severity Noted [...] encounter Miscellaneous Notes * Telephone Encounter - Paty Christensen - 04/09/2023 10:32 AM EDT Spoke with Fermin, information printed and at front office developer in ortho. 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 * Telephone Encounter - TOMASA Yuan - 04/09/2023 9:17 AM EDT Patient called requesting information for his Workmans Comp Insurance regarding his Flexor Tendon procedure by Dr Sellers. He needs information of the date of the procedure and the return to work for his workman's Comp. He can pick the information up at the office if he needs to. Please call patient at [phone] documented in this encounter Plan of Treatment [...] 08/14/2020, Additional history exists GFR 11/02/2023 11/02/2022, 0 10/2021, 10/14/2020, Additional history exists COLONOSCOPY-EVERY 5 YRS AGES 18-100 10/23/2024 10/23/2019, 10/23/2019, 04/28/2013, Additional history exists Diabetes Screening 11/02/2025 11/02/2022, 0 11/01/2021, 10/14/2020, Additional history exists Lipid Panel 11/02/2027 11/02/2022, 020 10/2021, 05/29/2021, Additional history exists Zoster Vaccines [...]
--- OUTSIDE RECORDS SUMMARY | 2023-08-15 21:10 | External Medical Summary | Summary of Care ---
Author Name Unknown Organization [facility] Address [address] [place] [address] Phone [phone] Care Team Providers Care Pcts Name Role Phone Unavailable Primary Care Provider Unavailabl e Reason for Visit * Reason Comments Follow Up Right CTR Encounter Details Date Type Department Care Team Description 03/20/2023 Office Visit [facility] [address] [facility] [place] [address] Juan Sellers MD [address] [place] [address] Spontaneous rupture of flexor tendon of right hand*; Bilateral carpal tunnel syndrome Allergies Active Allergy Reactions Severity Noted Date Comments Thiopental Sodium Seizure High 02/18/2001 documented as of this encounter (statuses as of 03/20/2023) Medications Medication Sig Dispensed Refills Start Date [...] as of this encounter (statuses as of 03/20/2023) Active Problems Problem Noted Date Spontaneous rupture of flexor tendon of right hand 12/31/2022 Bilateral carpal tunnel syndrome 022 HTN, goal below 130/80 Dyslipidemia documented as of this encounter (statuses as of 03/20/2023) Resolved Problems Problem Noted Date Resolved Date [...] as of this encounter (statuses as of 03/20/2023) Immunizations Name Administration Dates Next Due Seasonal [...] on file documented as of this encounter Progress Notes * Juan Sellers MD - 03/20/2023 1:55 PM EDT He is 1 month status post repair partial rupture flexor profundus right small finger and Release right carpal tunnel. He has no complaints. Patient Active Problem List Diagnosis Code HTN, goal below 130/80 I10 Dyslipidemia E78.5 Bilateral carpal tunnel syndrome G56.03 Spontaneous rupture of flexor tendon of right hand M66.341 Current Outpatient Medications Medication Sig Dispense Refill Vitamin D, Cholecalciferol, 1000 units TABS Take 1 Tablet by mouth in the morning. Ibuprofen 200 MG Oral Capsule 4 Capsules 2 times a day as needed for Pain. omega-3 1000 MG CAPS Take 1 Capsule by mouth in the morning. Lisinopril 10 MG Oral Tablet (Prinivil) Take 1 Tablet by mouth in the morning and 1 Tablet before bedtime. 180 Tablet 3 Rosuvastatin Calcium 5 MG Oral Tablet (Crestor) Take 1 Tablet by mouth in the morning. 90 Tablet 3 Acetaminophen-Codeine 300-30 MG Oral Tablet Take 1 Tablet by mouth every 4 hours as needed for Pain, Moderate. May take 2 tablets for severe pain. Maximum daily dose is 10 tablets. 10 Tablet 1 No current facility-administered medications for this visit. Review of patient's allergies indicates: Allergen Reactions Thiopental Sodium Seizure Past Medical History: Diagnosis Date Benign neoplasm of colon 04/23/13 COLONOSCOPY FLEXIBLE PROXIMAL DIAGNOSTIC performed by William Romeo MD at ENDOSCOPY [facility], ADENOMATOUS POLYPS REPEAT COLONOSCOPY IN 5 YEAR Closed fracture of lumbar vertebra with spinal cord injury (HCC) 11/14/83 Degeneration of cervical intervertebral disc Derangement of anterior horn of medial meniscus 11/14/83 Dyslipidemia, goal LDL below 130 Hallux valgus 01/31/10 right foot History of 2019 novel coronavirus disease (COVID-19) 05/13/2021 HTN, goal below 140/90 Open fracture of patella 11/14/83 Peptic ulcer age 15 Vitamin D deficiency 11/10/09 Vitamin D 18.5 Social History Tobacco Use Smoking status: Former Packs/day: 0.50 Years: 15.00 Pack years: 7.50 Types: Cigarettes Smokeless tobacco: Former Types: Snuff Quit date: 12/29/2000 Tobacco comments: quit the snuff 10/31/09 Substance Use Topics Alcohol use: Yes Comment: occ Vaping/E-Cigarette Use Vaping/E-Cigarette Use Never User Vaping/E-Cigarette Substances Vaping/E-Cigarette Devices PHYSICAL EXAM: The wound is clean and dry. He does not have full flexion of his right small finger but he does have good pull-through of the flexor profundus. ASSESSMENT: Doing well. PLAN: He no longer needs any immobilization. I released him to return to work next Saturday (February) full duty. Follow-up with me will be on a p.r.n. basis. Juan Sellers MD documented in this encounter Nursing Notes * Elva Toledo RN - 03/20/2023 1:45 PM EDT Pt presents to for s/p right CTR and repair rupture flexor profundus right small finger on 02/20/23.Splint intact. Started PT last week. Elva Toledo RN documented in this encounter Plan of Treatment [...] - Td or Tdap) 10/16/2022 10/16/2012, 09/30/2000 GFR 11/02/2023 11/02/2022, 0 10/2021, 10/14/2020, Additional history exists COLONOSCOPY-EVERY 5 YRS AGES 18-100 10/23/2024 10/23/2019, 10/23/2019, 04/28/2013, Additional history exists Diabetes Screening 11/02/2025 11/02/2022, 0 11/01/2021, 10/14/2020, Additional history exists Lipid Panel 11/02/2027 11/02/2022, 020 10/2021, 05/29/2021, Additional history exists Zoster Vaccines Completed 12/11/2019, 10/09/2019 Influenza Vaccine (FLU shot) Completed 11/2022, 11/01/2021, 08/14/2020, Additional history exists GARDASIL-HPV IMMUNIZATION SERIES Aged Out No longer [...] Not on filedocumented as of this encounter Visit Diagnoses Diagnosis Spontaneous rupture of flexor tendon of right hand- Primary Nontraumatic rupture of flexor tendons of hand and wrist Bilateral carpal tunnel syndrome Carpal tunnel syndrome documented in this encounter
--- OUTSIDE RECORDS SUMMARY | 2023-08-15 21:10 | External Medical Summary | Summary of Care ---
Author Name Unknown Organization [facility] Address [address] [place] [place] [place] [address] Phone [phone] Care Team Providers Care Floating Operator Name Role Phone Unavailable Primary Care Provider Unavailabl e Reason for Visit * Reason Onset Date Comments Medical Records Request 03/13/2023 Encounter Details Date Type Department Care Team Description 03/13/2023 Telephone Orthopaedics [facility] [address] [place] [address] Juan Sellers MD [address] [place] [address] Medical Records Request Allergies Active Allergy Reactions Severity Noted Date [...] encounter Miscellaneous Notes * Telephone Encounter - Mendy Luna - 03/13/2023 11:42 AM EDT [facility] [place] is requesting the medical records of Fermin Nelson for the purpose of a worker's compensation claim. -3rd Attempt Forwarded to [facility] documented in this encounter Plan of Treatment [...]
--- OUTSIDE RECORDS SUMMARY | 2023-08-15 21:10 | External Medical Summary | Summary of Care ---
Author Name Unknown Organization [facility] Address [address] [place] [address] Phone [phone] Care Team Providers Care [employer] Resource Teacher Name Role Phone Unavailable Primary Care Provider Unavailabl e Reason for Referral * Evaluate & Treat - Unlimited Visits (Within 10 days (routine)) - Pending Review Specialty Diagnoses / Procedures Referred By Solis robertson Referred To Contact Physical Therapy / Physical Medicine And Rehab Diagnoses Spontaneous rupture of flexor tendon of right hand Bilateral carpal tunnel syndrome Juan Sellers MD [address] [place] [address] Referral ID Status Reason Start Date Expiration Date Visits Requested Visits Authorized [id number] Pending Review Specialty Services Required 03/01/[phone] Question Answer Referral Priority Within 10 days (routine) Comments Diagnosis: Status post repair partial (near complete) rupture flexor profundus right small finger. Rx: Hand therapy referral for position and hold, active gliding. This referral is valid only for Sara Sheets CHT, MPT. Reason for Visit * Reason Comments Post-Op right carpal tunnel release; anastomosis flexor profundus small to ring finger 02/20/23 Encounter Details Date Type Department Care Team Description 03/01/2023 Office Visit Orthopaedics [facility] [address] [place] [address] Juan Sellers MD [address] [place] [address] Spontaneous rupture of flexor tendon of right hand*; Bilateral carpal tunnel syndrome Allergies Active Allergy Reactions Severity Noted Date Comments Thiopental Sodium Seizure High 02/18/2001 documented as of this encounter (statuses as of 03/01/2023) Medications Medication Sig Dispensed Refills Start Date [...] as of this encounter (statuses as of 03/01/2023) Active Problems Problem Noted Date Spontaneous rupture of flexor tendon of right hand 12/31/2022 Bilateral carpal tunnel syndrome 022 HTN, goal below 130/80 Dyslipidemia documented as of this encounter (statuses as of 03/01/2023) Resolved Problems Problem Noted Date Resolved Date [...] as of this encounter (statuses as of 03/01/2023) Immunizations Name Administration Dates Next Due Seasonal [...] alcohol) occ Sex Assigned at Date Recorded Not on file Job Start Date Occupation Industry Not on file Not on file Not on file documented as of this encounter Progress Notes * Juan Sellers MD - 03/01/2023 1:20 PM EDT He is 1 week status post Release right carpal tunnel and repair near complete rupture flexor profundus right small finger. He has no complaints. He has no pain and no numbness. Patient Active Problem List Diagnosis Code HTN, [...] performed by William Romeo MD at ENDOSCOPY [facility], ADENOMATOUS POLYPS REPEAT COLONOSCOPY IN 5 [...] EXAM: The wound is clean and dry. There is no sign of infection. He does have active pull-through to the distal segment of the right small finger. ASSESSMENT: Doing well. PLAN: The splint was reapplied. A hand therapy referral was made. Follow-up in 3 weeks to start active and unrestricted motion. Juan Sellers MD documented in this encounter Nursing Notes * Rebecca Reynolds LPN - 03/01/2023 1:08 PM EDT 1st post op visit right carpal tunnel release; anastomosis flexor profundus small to ring finger 02/20/23 Rebecca Siddiqi LPN documented in this encounter Plan of Treatment Upcoming Encounters Date Type Specialty Care Team Description 03/20/2023 Office Visit Orthopedics Juan Sellers MD [address] [facility] [place] [address] Scheduled Procedures Name Priority Associated Diagnoses Date/Ti me COLONOSCOPY FLEXIBLE PROXIMAL DIAGNOSTIC Recall History of colon polyps Scheduled Referrals Name Type Priority Associated Diagnoses Orde r Schedule PHYSICAL THERAPY REFERRAL OP Referral Within 10 days (routine) Spontaneous rupture of flexor tendon of right hand Bilateral carpal tunnel syndrome Ordered: 03/01/2023 Health Maintenance Due Date Last Done Comments [...]
--- OUTSIDE RECORDS SUMMARY | 2023-08-15 21:10 | External Medical Summary | Summary of Care ---
Author Name Unknown Organization [facility] Address [address] [place] [address] Phone [phone] Care Team Providers Care Finished Yarn Examiner Name Role Phone Catrachito Calix MD Primary Care Provider [phone] Reason for Visit * Reason Onset Date Comments Advice 08/05/2023 Numb shoulders d own, can't do anything, started about a week worsening Encounter Details Date Type Department Care Team (Late st Contact Info) Description 08/05/2023 Telephone Family Practice [facility] [address] [place], [place] [phone] Services, Scheduling [address] [place] [address] Advice (Numb shoulders down, can't do anyt... Allergies Active Allergy Reactions Criticality Noted Date Comments Thiopental Sodium Seizure High 02/18/2001 documented as of this encounter (statuses as of 08/08/2023) Medications Medication Sig Dispensed Refills Start Date [...] as of this encounter (statuses as of 08/08/2023) Active Problems Problem Noted Date Diagnosed Date Spontaneous rupture of flexor tendon of right holliday nd 12/31/2022 Bilateral carpal tunnel syndrome 08/01/2022 HTN, goal below 130/80 Dyslipidemia documented as of this encounter (statuses as of 08/08/2023) Resolved Problems Problem Noted Date Diagnosed Date Resolved Date History of 2019 novel ardon virus disease (COVID-19) 05/13/2021 10/16/2021 Prediabetes 02/18/2018 10/16/2021 Overview: Per Prediabetes protocol #1 Snoring 09/07/2015 10/16/2021 Screening for prostate cancer 07/09/2014 10/16/2021 Prostate cancer screening in formation given during patient encounter 10/16/2012 09/07/2015 Screening for colon cancer 10/16/2012 1 11/08/2014 General medical exam 10/16/2012 022 Pain, joint, knee, right 10/04/201105/2015 Pain, joint, foot, right 10/04/201105/2015 Headache 10/17/2010 10/16/2012 Overview: ICD-10 update of inactive term Herpetic gingivostomatitis 08/15/2010 1 Lyme disease 06/15/2010 09/07/2015 Herpetic gingivostomatitis 06/14/2010 0 10/16/2021 Other, multiple, and unspeci fied sites, insect bite, nonvenomous, without mention of infection(919.4) 06/14/2010 10/16/2012 Hallux valgus 01/31/2010 10/16/2012 Overview: right foot Dyslipidemia, goal LDL below 130 11/10/2009 09/07/2015 History of tobacco use 11/10/200907/09 Vitamin D deficiency 11/10/2009 014 Overview: Vitamin D 18.5 Vitamin D deficiency 11/10/2009 022 Overview: Vitamin D 18.5 Dyslipidemia, goal to be determined 09/13/2009 11/10/2009 Overview: Per Lipid Taxonomy. OSTEOARTHROS NOS-L-LEG 07/16/200510/16 Mixed dyslipidemia 01/19/2003 9 Overview: Per Lipid Taxonomy. Peptic ulcer 10/16/2012 Degeneration of cervical intervertebral disc 10/16/2012 HTN, goal below 140/90 05/22 Overview: Per HTN Protocol #27. Peptic ulcer 10/16/2012 documented as of this encounter (statuses as of 08/08/2023) Immunizations Name Administration Dates Next Due SEASONAL INFLUENZA, PF, 6 M & Above, IM , (FLULAVAL or FLUZONE) 11/02/2022,11/01/2021,08/14/2020,2018 Seasonal Influenza, Quadriva lent, No Preserve, [...] = 0.6 oz pur e alcohol) occ PHQ-2 Answer Date Recorded PHQ-2 Score 0 10/09/2019 Sex and Gender Information Value Date Recorded Sex Assigned at Male 03/06/2023 9:59 AM EDT Gender Identity Male 03/06/2023 9:59 AM EDT Sexual Orientation Not on file Job Start Date Occupation Industry Not on file Not on file Not on file documented as of this encounter Miscellaneous Notes * Telephone Encounter - Rebecca Reynolds LPN - 08/08/2023 8:44 AM EST Pt scheduled to see Dr Sellers 08/17/23 @ 1 pm by outside patient scheduler. Rebecca johnson LPN * Telephone Encounter - Latoya Hays OSA - 08/05/2023 9:24 AM EST What is the reason for call? Numb shoulders down, can't do anything, started about a week worsening. What Clinic is the patient trying to reach? [facility] Clinic: Joyce Thompson - Call Type: Hot Call- warm transfer call to the neonatal intensive care unit nurse EMERGENT line- [phone]: Caller: patient Return Phone #: [phone] Call was warm transferred to Aura at the neonatal intensive care unit nurse line. documented in this encounter Plan of Treatment Upcoming Encounters Date Type Department Care Team (Late st Contact Info) Description 08/14/2023 1:00 PM EST Office Visit Orthopaedics [facility] [address] [facility] [place] [address] Juan Sellers MD [address] [facility] [place] [address] Scheduled Procedures Name Priority Associated Diagnoses Date/Ti me COLONOSCOPY FLEXIBLE PROXIMAL DIAGNOSTIC Recall History of colon polyps Health Maintenance Due Date Last Done Comments COVID-19 Vaccine (#1) 1965 Albumin/Creatinine Ratio 09/08/2018 09/08/2015, 06/30 Depression Screening 10/09/2020 10/09/2019 DTaP,Tdap,and Td Vaccines (2 - Td or Tdap) 10/16/2022 10/16/2012, 09/30/2000 Influenza Vaccine (FLU shot) (#1) 2023 11/02/2022, 11/01/2021, 08/14/2020, Additional history exists GFR 11/02/2023 11/02/2022, 020 10/2021, 10/14/2020, Additional history exists COLONOSCOPY-EVERY 5 YRS AGES 18-100 10/23/2024 10/23/2019, 10/23/2019, 04/28/2013, Additional history exists Diabetes Screening 11/02/2025 11/02/2022, 0 11/01/2021, 10/14/2020, Additional history exists Lipid Panel 11/02/2027 11/02/2022, 0 10/2021, 05/29/2021, Additional history exists Zoster Vaccines Completed 12/11/2019, 10/09/2019 GARDASIL-HPV IMMUNIZATION SERIES Aged Out No longer eligible based on patient's age to complete this topic Hepatitis B Aged Out No longer eligi ble based on patient's age to complete this [...] Not on filedocumented as of this encounter Care Teams Finished Yarn Examiner Relationship Specialty Start Date End Date Catrachito Calix MD [address] [place] [address] PCP - General Family Medicine 08/05/23 documented as of this encounter
--- OUTSIDE RECORDS SUMMARY | 2023-08-15 21:10 | External Medical Summary | Summary of Care ---
Author Name Unknown Organization [facility] Address [address] [place] [address] Phone [phone] Care Team Providers Care Transcribing Operators Supervisor Name Role Phone Unavailable Primary Care Provider Unavailabl e Reason for Visit * Reason Onset Date Comments Appointment 02/22/2023 Encounter Details Date Type Department Care Team Description 02/22/2023 Telephone Orthopaedics [facility] [address] [place] [address] Services, Scheduling [address] [place] [address] Appointment (/) Allergies Active Allergy Reactions Severity Noted Date Comments Thiopental Sodium Seizure High 02/18/2001 documented as of this encounter (statuses as of 02/22/2023) Medications Medication Sig Dispensed Refills Start Date [...] as of this encounter (statuses as of 02/22/2023) Active Problems Problem Noted Date Spontaneous rupture of flexor tendon of right hand 12/31/2022 Bilateral carpal tunnel syndrome 022 HTN, goal below 130/80 Dyslipidemia documented as of this encounter (statuses as of 02/22/2023) Resolved Problems Problem Noted Date Resolved Date [...] as of this encounter (statuses as of 02/22/2023) Immunizations Name Administration Dates Next Due Seasonal [...] Miscellaneous Notes * Telephone Encounter - TOMASA Munson - 02/22/2023 12:46 PM EDT Pt is scheduled. Thank you! * Telephone Encounter - TOMASA Blake - 02/22/2023 11:06 AM EDT Pt called to schedule post-op appt but is unsure of timeline. Please advise how far out post-op appt should be. Dr. Sellers also doesn't have open post-op slots until Apr. Please advise. documented in this encounter Plan of Treatment Upcoming Encounters Date Type Specialty Care Team Description 03/01/2023 Office Visit Orthopedics Juan Sellers MD [address] [place] [address] Scheduled Procedures Name Priority Associated Diagnoses Date/Ti [...] Tdap) 10/16/2022 10/16/2012, 09/30/2000 GFR 11/02/2023 11/02/2022, 02/0 10/2021, 10/14/2020, Additional [...]
--- OUTSIDE RECORDS SUMMARY | 2023-08-15 21:10 | External Medical Summary | Summary of Care ---
Author Name Unknown Organization [facility] Address [address] [place] [address] Phone [phone] Care Team Providers Care Power Grader Operator Name Role Phone Unavailable Primary Care Provider Unavailabl e Reason for Visit * Auth/Cert Specialty Diagnoses / Procedures Referred By Solis robertson Referred To Contact Diagnoses Carpal tunnel syndrome of right wrist Carpal tunnel syndrome of right wrist [G56.01] Procedures CARPAL TUNNEL SURGERY TENDON EXCISION, FINGER,SINGLE,EACH TENDON NEUROPLASTY MEDIAN NERVE AT CARPAL TUNNEL EXCISION FLEXOR TENDON FINGER Referral ID Status Reason Start Date Expiration Date Visits Re quested Visits Authorized [id number] Encounter Details Date Type Department Care Team Description 02/20/2023 Hospital Encounter OR [facility], Operating [facility] [address] [place] [id number] Juan Sellers MD [address] [place] [id number] Allergies Active Allergy Reactions Severity Noted Date Comments Thiopental Sodium Seizure High 02/18/2001 documented as of this encounter (statuses as of 02/21/2023) Medications Medication Sig Dispensed Refills Start Date [...] as of this encounter (statuses as of 02/21/2023) Active Problems Problem Noted Date Spontaneous rupture of flexor tendon of right hand 12/31/2022 Bilateral carpal tunnel syndrome 022 HTN, goal below 130/80 Dyslipidemia documented as of this encounter (statuses as of 02/21/2023) Resolved Problems Problem Noted Date Resolved Date [...] as of this encounter (statuses as of 02/21/2023) Immunizations Name Administration Dates Next Due Seasonal [...] on file documented as of this encounter Last Filed Vital Signs Vital Sign Reading Time Taken Comments Blood Pressure 123/68 02/20/2023 2:33 PM EDT Pulse 77 02/20/2023 2:33 PM EDT Temperature 36.1 C (97 F) 02/20/2023 2:33 PM EDT Respiratory Rate 16 02/20/2023 2:33 PM EDT Oxygen Saturation 99% 02/20/2023 2:33 PM EDT Inhaled Oxygen Concentration - - Weight - - Height - - Body Mass Index - - documented in this encounter Discharge Instructions * Discharge Instr - AVS* Juan Sellers MD - 02/20/2023 2:29 PM EDT HAND SURGERY PATIENT INSTRUCTIONS [facility] at [phone] during business hours. Keep your hand elevated above the level of your heart for the first 48 - 72 hours and as needed after this time. It is a fact that holding your hand down for even one minute negates holding it up forhours! You may keep your arm in the sling provided, but you must place your hand at the level of your opposite shoulder, not down by your belly. When you are lying down, keep your hand on your chest, or on 2 pillows next to you. When you are sitting, rest your arm on your elbow, with your hand up, or restyour hand on 2 pillows. The nurse will show you how to do this. To prevent stiffness, come out of the sling and move shoulder, elbow and fingers several times a day. If your fingers are not immobilized by a splint, move them. Opening and closing your hand as if youare making a fist, then straightening out your fingers, pumps out fluid and prevents swelling. If your fingers are immobilized, then move only those fingers that are not splinted. If your dressing becomes loose, soiled, unraveled, or damaged in any way, DO NOT TAKE THE DRESSING OFF. CALL THE OFFICE IMMEDIATELY: [phone]. You have been given a prescription for pain medicine. Take it if you need it. Remember - keep your hand elevated to prevent swelling. SWOLLEN HANDS HURT! If your hands or fingers are swollen, cold, blue, or numb, or if the pain in your hands or fingers suddenly increases, CALL THE OFFICE IMMEDIATELY: [phone]. A small amount of blood staining the dressing may not indicate a problem, but you should call the office to be sure. If you do not already have a post-operative appointment scheduled, call the office at [phone] to arrange one. Do not get your hand or the dressing wet. Sponge bathe only. We will talk about when you can get your shower at your first post-operative visit. Do not drive until given permission to do so by your physician. documented in this encounter Progress Notes * Juan Sellers MD - 02/20/2023 2:36 PM EDT [facility] [address] [address] OUTPATIENT SURGERY DISCHARGE SUMMARY NOTE Name: Fermin Nelson Jr. Location: OR [facility]/OR Date: 02/20/2023 Time: 2:36 PM Surgery Date: 02/20/2023 Procedure: Procedure(s): NEUROPLASTY MEDIAN NERVE AT CARPAL TUNNEL EXCISION FLEXOR TENDON FINGER Right Right Surgeon: Surgeon(s): Juan Sellers MD Discharge Diagnosis: Right carpal tunnel syndrome and ruptured flexor digitorum profundus right small finger After examination of this patient, I have determined he is ready for discharge to home when the patient meets criteria. Discharge instructions were given to the patient. documented in this encounter H&P Notes * Juan Sellers MD - 02/20/2023 11:37 AM EDT 02/20/23 The patient is a 57 year old male who I saw in clinic for numbness in both hands. I treated him with splints and steroid injections, and he got good relief for 2 months, after which his symptoms recurred. I released his left carpal tunnel 2 weeks ago and he did very well with that. He recently felta pop in his right forearm while he was carrying something heavy and trying to open a heavy door with his small finger at work. After he felt a pop, he could no longer bend his small finger. The Patient Active Problem List Diagnosis Code HTN, [...] mouth in the morning. 90 Tablet 3 No current facility-administered medications for this visit. Review of patient's allergies indicates: Allergen Reactions Thiopental Sodium Seizure Past Medical History: Diagnosis Date Benign neoplasm of colon 04/23/13 COLONOSCOPY FLEXIBLE PROXIMAL DIAGNOSTIC performed by William Romeo MD at ENDOSCOPY [facility], ADENOMATOUS POLYPS REPEAT COLONOSCOPY IN 5 YEAR [...] Use Never User Vaping/E-Cigarette Substances Vaping/E-Cigarette Devices ROS: Negative for GI, , cardiac, respiratory, endocrine, neurologic or psychiatric complaints. PHYSICAL EXAM:. There is no discrete intrinsic or extrinsic motor weakness except for the DIPjoint of his right small finger which has no active flexion. Passive flexion is fullThere is goodcapillary refill. Heart & lungs Okay Impression: Right carpal tunnel syndrome and ruptured flexor digitorum profundus to the right smallfinger Plan: Release right carpal tunnel and transfer the flexor profundus from the small finger to the ring finger profundus. documented in this encounter Nursing Notes * Dania Garcia RN - 02/20/2023 2:53 PM EDT dsg d&i, RUE, sling in place,+CMS. VSS, tolerating po fluid, denies pain or nausea and verbalized readiness for d/c at this time.Pt ambulated to vehicle accompanied by staff. * Cyndy Collazo RN - 02/20/2023 11:14 AM EDT Surgical consent verified with patient. Patient agrees with listed procedure and verified signature. documented in this encounter OR Notes * OR Surgeon - Juan Sellers MD - 02/20/2023 2:29 PM EDT [facility] [address] [address] OPERATIVE REPORT Name: Fermin Nelson JrNicho Date: 02/20/2023 Time: 2:29 PM Location: OR [facility] Service: Orthopaedic Surgery Date of Surgery: 02/20/2023 Pre-op Diagnosis: Right carpal tunnel syndrome and ruptured flexor digitorum profundus right small finger Post-op Diagnosis: Right carpal tunnel syndrome and partial rupture flexor digitorum profundus right small finger Surgeon: Juan Sellers MD Assistants: None Anesthesia: Local Operation: Release right carpal tunnel and delayed repair flexor profundus right small finger Findings: 2/3 rupture of flexor profundus right small finger EBL: Minimal Specimen: None Complications: None Patient Condition: Stable Drains: None DESCRIPTION OF OPERATION: The patient was seen in the holding area where the right wrist and palm were infiltrated with 27 mL of 1% lidocaine with epinephrine and sodium bicarbonate. He was then brought to the operating room with the right upper extremity was prepped and draped in the usual fashion. A standard approach to the carpal tunnel was made in the palm of the ulnar extension at the wrist.Sharp dissection was carried down to subcutaneous tissue. Hemostasis was achieved with electrocautery as necessary. The palmar aponeurosis was divided in line with the skin incision exposing the ulnar fat pad which was retracted. The ligament was longitudinally divided under direct vision. The antebrachial fascia was released. The median nerve was dissected free from its attachment the ligament. Nerve was hyperemic and compressed in the region of the carpal tunnel. The flexor tendons were then dissected out. The flexor profundus of the small finger was located. It did not appear to be completely ruptured but it did appear to be somewhat encased in scar tissue. He skin incision was extended distally in a zigzag fashion and the flexor tendons to the ring and small fingers were dissected outjust proximal to the A1 pulleys. The flexor profundus to the small finger was found to be partiallyruptured but it appeared that there was enough intact tendon tissue to perform a repair. This was performed with several 3-0 Ethibond sutures in a [place] pattern. A conroy repair was achieved and he could effect active flexion of the DIP joint although he lacks about 5 mm to the palm. I decided that this was a better result been going into the ring finger to anastomose with the tendon there. I palpated and inspected the floor of the carpal tunnel and the volar aspect of the distal radius, looking for a rough surface but did not find 1. I did not think that it was necessary to the hook of the hamate since I could not find any offending rough surface there and the repair was a bit distal to the hook of the hamate. The skin was then closed with 4-0 Vicryl Rapide and a bulky dry sterile compre ssive dressing was applied. This incorporated an ulnar gutter plaster splint. He was then taken to the holding area in satisfactory condition. All dissection was performed under appropriate magnification. Attestation: I performed the procedure documented in this encounter Plan of Treatment [...] Not on filedocumented as of this encounter Active and Recently Administered Medications Times are shown in EDT. Scheduled Medication Order 02/18/2023 02/19/2023 02/20/2023 buffered lidocaine 1% w/epi 1:[id number] inj 30 mL 30 mL, Subcutaneous, ONCE, On 02/20/23 at 1145, For 1 dose, Buffered with sodium bicarbonate, Pre-Op 1145 (Due) documented in this encounter
--- OUTSIDE RECORDS SUMMARY | 2023-08-15 21:10 | External Medical Summary | Summary of Care ---
Author Name Unknown Organization [facility] Address [address] [place] [facility] [place] [address] Phone [phone] Care Team Providers Care Colorist Photography Name Role Phone Unavailable Primary Care Provider Unavailabl e Reason for Visit * Reason Onset Date Comments Medical Records Request 03/13/2023 Encounter Details Date Type Department Care Team Description 03/13/2023 Telephone Orthopaedics [facility] [address] [place] [address] Juan Sellers MD [address] [place] [address] Medical Records Request Allergies Active Allergy Reactions Severity Noted Date Comments Thiopental Sodium Seizure High 02/18/2001 documented as of this encounter (statuses as of 03/13/2023) Medications Medication Sig Dispensed Refills Start Date [...] as of this encounter (statuses as of 03/13/2023) Active Problems Problem Noted Date Spontaneous rupture of flexor tendon of right hand 12/31/2022 Bilateral carpal tunnel syndrome 022 HTN, goal below 130/80 Dyslipidemia documented as of this encounter (statuses as of 03/13/2023) Resolved Problems Problem Noted Date Resolved Date [...] as of this encounter (statuses as of 03/13/2023) Immunizations Name Administration Dates Next Due Seasonal [...] Luna - 03/13/2023 11:42 AM EDT The [place] is requesting the medical records of Fermin Nelson for the purpose of a worker's compensation claim. Forwarded to [facility] documented in this encounter Plan of Treatment Upcoming Encounters Date Type Specialty Care Team Description 03/20/2023 Office Visit Orthopedics Juan Sellers MD [address] [address] Scheduled Procedures Name Priority Associated Diagnoses Date/Ti [...]
--- OUTSIDE RECORDS SUMMARY | 2023-08-15 21:10 | External Medical Summary | Summary of Care ---
Author Name Unknown Organization [facility] Address [address] [place] [address] Phone [phone] Care Team Providers Care Engineer Chief Name Role Phone Catrachito Calix MD Primary Care Provider [phone] Reason for Visit * Reason Onset Date Comments Advice 08/05/2023 Numb shoulders d own, can't do anything, started about a week worsening Encounter Details Date Type Department Care Team (Late st Contact Info) Description 08/05/2023 Telephone Family Practice [facility] [address] [place], [place] [id number] Services, Scheduling [address] [place] [address] Advice (Numb shoulders down, can't do anyt... [...] EST Pt scheduled to see Dr Sellers 08/14/23 @ 1 pm by outside insulation hoseman. Rebecca johnson LPN * Telephone Encounter - Latoya Hays OSA - 08/05/2023 9:24 AM EST What is the reason for call? Numb shoulders down, can't do anything, started about a week worsening. What Clinic is the patient trying to reach? [facility] Clinic: Joyce Thompson - Call Type: Hot Call- warm transfer call to the audio engineer EMERGENT line- [phone]: Caller: patient Return Phone #: [phone] Call was warm transferred to Aura at the audio engineer line. documented in this encounter Plan of Treatment Upcoming Encounters Date Type Department Care Team (Late st Contact Info) Description 08/14/2023 1:00 PM EST Office Visit Orthopaedics [facility] [address] [facility] [place] [address] Juan Sellers MD [address] [facility] [place] [address] Scheduled Procedures Name Priority Associated Diagnoses Date/Ti [...] filedocumented as of this encounter Care Teams Engineer Chief Relationship Specialty Start Date End Date Catrachito Calix MD [address] [address] PCP - General Family Medicine 08/05/23 documented as of this encounter
--- OUTSIDE RECORDS SUMMARY | 2023-08-15 21:10 | External Medical Summary | Summary of Care ---
Author Name Unknown Organization [facility] Address [address] [facility] [place] [address] Phone [phone] Care Team Providers Care Developer Programmer Analyst Name Role Phone Unavailable Primary Care Provider Unavailabl e Reason for Visit * Reason Onset Date Comments Medical Records Request 03/13/2023 Encounter Details Date Type Department Care Team Description 03/13/2023 Telephone Orthopaedics [facility] [address] [place] [address] Juan Sellers MD [address] [place] [address] Medical Records Request Allergies Active Allergy Reactions Severity Noted Date Comments Thiopental Sodium Seizure High 02/18/2001 documented as of this encounter (statuses as of 03/29/2023) Medications Medication Sig Dispensed Refills Start Date [...] as of this encounter (statuses as of 03/29/2023) Active Problems Problem Noted Date Spontaneous rupture of flexor tendon of right hand 12/31/2022 Bilateral carpal tunnel syndrome 022 HTN, goal below 130/80 Dyslipidemia documented as of this encounter (statuses as of 03/29/2023) Resolved Problems Problem Noted Date Resolved Date [...] as of this encounter (statuses as of 03/29/2023) Immunizations Name Administration Dates Next Due Seasonal [...] Luna - 03/13/2023 11:42 AM EDT The [place] is requesting the medical records of Fermin Nelson for the purpose of a worker's compensation claim. -2nd Attempt Forwarded to [facility] documented in this encounter Plan [...] Tdap) 10/16/2022 10/16/2012, 09/30/2000 GFR 11/02/2023 11/02/2022, 10/2021, 10/14/2020, Additional history exists COLONOSCOPY-EVERY 5 YRS AGES 18-100 10/23/2024 10/23/2019, 10/23/2019, 04/28/2013, Additional history exists Diabetes Screening 11/02/2025 11/02/2022, 0 11/01/2021, 10/14/2020, Additional history exists Lipid Panel 11/02/2027 11/02/2022, 10/2021, 05/29/2021, Additional history exists Zoster Vaccines [...]
[2023-08-17 06:42] LABS: Babesia microti DNA Not Detected (Not Detected)
== END 2023-08-14 16:51 | disposition short-term general hospital (02) | DRG 74 ==
LOC: ED 14:47 → 3W 20:03 → SUATTDRO 20:03 → 3W 21:24